=== PATIENT | female | born 1965 | race Caucasian/White ===

== ENCOUNTER → 2017-05-10 | Outpatient (CLI) | payer SELFPAY ==
--- NOTE | 2017-05-10 11:36 | US ---
EXAMINATION TYPE: US gallbladder DATE OF EXAM: 05/10/2017 COMPARISON: NONE CLINICAL HISTORY: R10.9 ABD Pain. EXAM MEASUREMENTS: Liver Length: 15.6 cm Gallbladder Wall: 0.2 cm CBD: 0.4 cm Right Kidney: 11.0 x 5.1 x 4.7 cm Pancreas: wnl Liver: difficult to penetrate and the echotexture is coarse Gallbladder: wnl Evidence for sonographic Rubio's sign: no CBD: wnl Right Kidney: wnl and cortical medullary differentiation is maintained There is no ascites. IMPRESSION: Correlate for hepatocellular disease, hepatic steatosis.
== END | disposition home or self-care (01) ==
LOC: RADUSWWP 06:55
PROVIDERS: ATTEND Family Medicine
DX: R10.9 Unspecified abdominal pain (principal)
CPT/HCPCS: 76705

== ENCOUNTER → 2017-06-08 | Outpatient (CLI) | payer OTHER ==
--- NOTE | 2017-06-08 09:12 | NM ---
EXAMINATION TYPE: NM hepatobiliary w EF DATE OF EXAM: 06/08/2017 COMPARISON: Gallbladder ultrasound dated 05/10/2017 HISTORY: Abdominal pain TECHNIQUE: After the intravenous administration of 5.17 mCi Tc 99m Mebrofenin hepatobiliary scintigra phy is performed. Immediate images post injection. FINDINGS: There is satisfactory initial accumulation of tracer by the liver. The gallbladder is visualized wit hin 10 minutes. The small bowel activity is noted after injection fraction was calculated. At one h our 8 ounces of oral ensure plus is given to mimic CCK and gallbladder ejection fraction is calculate d at 77 %, slightly elevated with normal range of 35-75%. Therefore there is no scintigraphic eviden ce of cystic or common bile duct obstruction to suggest acute cholecystitis. IMPRESSION: 1. Slight elevation of the gallbladder ejection fraction indicating mild biliary hyperkinesia. 2. No scintigraphic evidence of acute or chronic cholecystitis.
== END | disposition home or self-care (01) ==
LOC: RADNMMAIN 06:51
PROVIDERS: ATTEND Family Medicine
DX: R93.2 Abnormal findings on diagnostic imaging of liver and biliary tract (principal)
CPT/HCPCS: 78226; A9537

== ENCOUNTER 2020-10-08 07:52 | Day surgery (SDC) | payer BC, OTHER ==
[2020-10-07 09:26] VITALS: BMI 30.4
[2020-10-08 08:24] VITALS: RESP 16; TEMP 97.2
[2020-10-08] MEDS: LACTATED RINGERS 1,000 ML IV SCH ×2 (08:32→09:06)
[2020-10-08] MEDS ORDERED: PROPOFOL 10 MG/ML 20 ML VIAL IV ONE (09:07)
[2020-10-08] MEDS ORDERED: LIDOCAINE 1% INJ 10MG/ML (20 ML MDV) ONE (09:07)
--- NOTE | 2020-10-08 09:28 | P.PCN ---
Date of Procedure: 10/08/20 Procedure(s) Performed: BRIEF HISTORY: Patient is a 55-year-old pleasant white female scheduled for an elective colonoscopy as a part of evaluation of prior history of colon polyps. PROCEDURE PERFORMED: Colonoscopy with snare polypectomy. PREOPERATIVE DIAGNOSIS: History of colon polyps. IV sedation per Anesthesia. PROCEDURE: After informed consent was obtained, the patient, was brought into the endoscopy unit. IV sedation was administered by Anesthesia under continuous monitoring. Digital rectal examination was normal. Initially the Olympus CF-160 flexible video colonoscope was then inserted in the rectum, gradually advanced into the cecum without any difficulty. Careful examination was performed as the scope was gradually being withdrawn. Ileocecal valve and the appendiceal orifice were visualized and appeared normal. Prep was excellent. Mucosa of the cecum, ascending colon, transverse colon, was normal. In the descending colon there was a 5 mm sessile polyp removed by snare polypectomy. Rest of the descending colon, sigmoid colon, and rectum appeared normal. Retroflexion was performed in the rectum and grade 2 internal hemorrhoids were seen. The patient tolerated the procedure well. IMPRESSION: 5 mm descending colon polyp status post polypectomy. Grade 2 internal hemorrhoids RECOMMENDATIONS: Findings of this examination were discussed with the patient as well as her family. She was advised to follow with the biopsy results. If the biopsy reveals adenoma, she can have a repeat coloscopy in 5 years.
[2020-10-08 09:58] VITALS: BP 124/84; PULSE 60
== END 2020-10-08 10:12 | disposition home or self-care (01) ==
LOC: ORWHC2ENDO 07:52
PROVIDERS: ATTEND Internal Medicine Gastroenterology
DX: D12.4 Benign neoplasm of descending colon (principal); K64.1 Second degree hemorrhoids; Z86.010 Personal history of colon polyps; E78.5 Hyperlipidemia, unspecified; Z79.899 Other long term (current) drug therapy
CPT/HCPCS: 45385; 81025; 88305; J2001; J2704

== ENCOUNTER → 2022-05-13 | Outpatient (CLI) | payer BC ==
--- NOTE | 2022-05-14 08:22 | MM ---
Reason for Exam: Screening (asymptomatic). Last mammogram was performed 6 year(s) and 4 month(s) ago. Patient History: Menarche at age 15. First Full-Term at age 22. Postmenopausal. Patient used Hormonal Contraceptives for 2 years. Risk Values: Annamarie 5 year model risk: 1.1%. NCI Lifetime model risk: 7.4%. Prior Study Comparison: 12/20/2013 Bilateral Diagnostic Mammogram, [facility]. 06/12/2014 Left Diagnostic Mammogram, [facility]. 01/06/2016 Bilateral Screening Mammogram, [facility]. Tissue Density: There are scattered fibroglandular densities. Findings: Analyzed By CAD. There is new 9 to 10 mm spiculated irregular mass in the left breast middle depth central aspect approximately 6 cm distance from nipple warrants follow-up. Stable 4 mm round mass in the anterior right breast slightly lower inner aspect. Overall Assessment: Incomplete: need additional imaging evaluation, BI-RAD 0 Management: Diagnostic Breast Ultrasound of the left breast. Targeted ultrasound. If Ultrasound negative, diagnostic mammogram follow-up would be advised. Electronically signed and approved by: Michael Han M.D.
--- NOTE | 2022-05-14 10:45 | BD ---
EXAMINATION TYPE: Axial Bone Density DATE OF EXAM: 05/13/2022 CLINICAL HISTORY: 57 years old Female. ICD-10 CODE: Z780, N951 POST KYRA Height: 65.25 Weight: 209.5 FRAX RISK QUESTIONS: Alcohol (3 or more units per day): no Family History (Parent hip fracture): no Glucocorticoids (More than 3mos): no History of Fracture in Adulthood: no Secondary Osteoporosis: 1. Type 1 Diabetes: no 2. Hyperthyroidism: no 3. Menopause before 45: no 4. Malnutrition: no 5. Chronic liver disease: no Rheumatoid Arthritis: no Current Tobacco Use: no RISK FACTORS HISTORY OF: Hip Fracture (Right/Left): no Spine Fracture: no History of Wrist Fracture: no Surgery to Spine/Hip(right/left)/Wrist (right/left): no Family History of Osteoporosis: no Active: no Diet low in dairy products/other sources of calcium: yes Postmenopausal woman: yes Take estrogen and/or progesterone medications: no Lost more than 2 inches in height since high school: yes Frequent falls: no Poor Health: no Hyperparathyroidism: no Adrenal Insufficiency: no MEDICATIONS: Prednisone or other steroids: no Thyroid Medications: no Osteoporosis Medications: no Additional Medications: vit d, cholesterol meds, vit b12 Additional History: EXAM MEASUREMENTS: Bone mineral densitometry was performed using the [employer] System. Bone mineral density as measured about the Lumbar spine is: ----- L1-L4(G/cm2): 1.053 T Score Values are as follows: ----- L1: -1.1 ----- L2: -1.0 ----- L3: -0.2 ----- L4: -2.0 ----- L1-L4: -1.1 Z Score Values are as follows: ----- L1: -1.2 ----- L2: -1.2 ----- L3: -0.4 ----- L4: -2.2 ----- L1-L4: -1.2 Baseline Study Bone mineral density about the R hip (g/cm2): 0.996 Bone mineral density about the L hip (g/cm2): 0.976 T Score values are as follows: -----R Neck: -0.7 -----L Neck: -1.2 -----R Total: -0.1 -----L Total: -0.2 Z Score values are as follows: -----R Neck: -0.3 -----L Neck: -0.9 -----R Total: -0.2 -----L Total: -0.3 Baseline Study FRAX%s: The graph provided illustrates a 5.8%% chance for a major osteoporotic fx and a 0.3%% chance for the hips probability for fx in 10 years time. IMPRESSION: Normal (Values between +1 and -1 indicate normal bone mass). Consider repeating this study in 5 year s or sooner if there is some new clinical indication. NOTE: T-SCORE=SD OF THE YOUNG ADULT MEAN.
== END | disposition home or self-care (01) ==
LOC: RADMAMWWP 16:02
PROVIDERS: ATTEND Family Medicine
DX: Z12.31 Encounter for screening mammogram for malignant neoplasm of breast (principal); M85.89 Other specified disorders of bone density and structure, multiple sites; Z78.0 Asymptomatic menopausal state
CPT/HCPCS: 77067; 77080

== ENCOUNTER → 2022-05-18 | Outpatient (CLI) | payer BC ==
--- NOTE | 2022-05-18 08:17 | USB ---
Reason for Exam: Additional evaluation requested from abnormal screening. Patient History: Menarche at age 15. First Full-Term at age 22. Postmenopausal. Patient used Hormonal Contraceptives for 2 years. Risk Values: Annamarie 5 year model risk: 1.1%. NCI Lifetime model risk: 7.4%. Technique: Method: Targeted. Prior Study Comparison: 06/12/2014 Left Diagnostic Mammogram, [facility]. 01/06/2016 Bilateral Screening Mammogram, [facility]. 05/13/2022 Bilateral MG screening mammo w CAD, [facility]. Findings: The upper outer quadrant of the left breast, the axilla of the left breast and the retroareolar of the left breast were scanned. Hypoechoic mass with posterior acoustic shadowing at the left 11:30 to 12:00 position measuring approximately 8 x 5 mm. Tissue diagnosis is recommended. No axillary adenopathy is appreciated.. Overall Assessment: Highly suggestive of malignancy, BI-RAD 5 Management: Ultrasound Core Biopsy of the left breast. A clinical breast exam by your physician is recommended on an annual basis and results should be correlated with mammographic findings. This exam should not preclude additional follow-up of suspicious palpable abnormalities. Results were given to the patient verbally at the time of exam. Electronically signed and approved by: Stuart Haro M.D. Radiologis
== END | disposition home or self-care (01) ==
LOC: RADUSWWP 07:37
PROVIDERS: ATTEND Family Medicine
DX: R92.8 Other abnormal and inconclusive findings on diagnostic imaging of breast (principal); N63.22 Unspecified lump in the left breast, upper inner quadrant; Z78.0 Asymptomatic menopausal state

== ENCOUNTER → 2022-06-02 | Day surgery (SDC) | payer BC ==
--- NOTE | 2022-06-09 10:39 | MM ---
Reason for Exam: Post Procedure Mammogram. Last screening mammogram was performed less than 1 month ago. Patient History: Menarche at age 15. First Full-Term at age 22. Postmenopausal. Patient used Hormonal Contraceptives for 2 years. Risk Values: Annamarie 5 year model risk: 1.1%. NCI Lifetime model risk: 7.4%. Prior Study Comparison: 06/12/2014 Left Diagnostic Mammogram, [facility]. 01/06/2016 Bilateral Screening Mammogram, [facility]. 05/13/2022 Bilateral MG screening mammo w CAD, [facility]. Tissue Density: Left: There are scattered fibroglandular densities. Pathology Description: Location: 12 o'clock. Marker Left Behind. Cores: 6 Skin Nicks: 1 Gauge: 13 The procedure of ultrasound guided core biopsy was explained to the patient. Benefits, alternatives, and risks were discussed. An informed consent was then obtained. A timeout was performed. The patient was placed in supine positioning for imaging and for the procedure. The overlying skin was prepped and draped in usual sterile fashion. Lidocaine was used as anesthetic into the skin and subcutaneous tissue up to area of concern in the left breast. A small skin leeanne was made with surgical scalpel. Under ultrasound guidance, a 12-gauge vacuum assisted biopsy gun device was used to obtain 6 core samples. A biopsy clip was left in lesion. Hydromark core coil marker was placed. The patient tolerated the procedure well without any immediate complication. The patient was kept in the radiology department for short stay after the procedure and then discharged home in stable condition. Postprocedure mammogram: The patient was transferred to mammography for physician ordered post procedure mammogram for clip placement verification. Impression: Successful ultrasound guided core biopsy of area of concern in the left breast, full pathology results to follow. Recommendations: 1. Recommendations are pending pathology results. Pathology Results: Result: Malignant, Invasive ductal carcinoma. LEFT BREAST, TWELVE O'CLOCK, ULTRASOUND GUIDED NEEDLE CORE BIOPSY: Invasive moderately differentiated ductal carcinoma (grade 2). See Surgical Pathology Cancer Case Summary. Overall Assessment: Malignant Assessment: MG diagnostic mammo LT wo CAD. - Left: Known biopsy proven malignancy, BI-RAD 6. Management: Surgical Consultation of the left breast. Electronically signed and approved by: Yoan Connors D.O. Radiologis
== END ==
LOC: RADUSWWP 10:16
PROVIDERS: ATTEND Family Medicine
DX: D05.12 Intraductal carcinoma in situ of left breast (principal)
CPT/HCPCS: 88305; 88342; 88341; 77065; 19083; A4648

== ENCOUNTER → 2022-07-01 | Outpatient (CLI) | payer BC ==
--- NOTE | 2022-07-01 07:45 | XR ---
EXAMINATION TYPE: XR chest 2V DATE OF EXAM: 07/01/2022 COMPARISON: None INDICATION: Presurgical evaluation TECHNIQUE: Frontal and lateral views of the chest are obtained. FINDINGS: The heart size is normal. The pulmonary vasculature is normal. The lungs are clear. IMPRESSION: 1. No acute pulmonary process.
== END | disposition home or self-care (01) ==
LOC: RADXRMAIN 07:02
PROVIDERS: ATTEND Family Medicine
DX: Z01.818 Encounter for other preprocedural examination (principal)
CPT/HCPCS: 71046

== ENCOUNTER → 2022-07-15 | Outpatient (CLI) | payer BC ==
[2022-07-15 13:16] VITALS: BP 122/86; PULSE 85; RESP 16; TEMP 98.3
--- NOTE | 2022-07-15 13:30 | P.PN ---
Subjective Progress Note Date: 07/15/22 Principal diagnosis: left breast stage IA invasive ductal cancer : History of Present Illness H&P Date: 06/18/22 Chief Complaint: Invasive ductal carcinoma left breast Cristina is a 57-year-old white female seen in consultation for Dr. El regarding a left breast invasive ductal carcinoma. [place] [id number]. This revealed a new 9-10 mm spiculated irregular mass in the left breast approximately 6 cm from the nipple. An ultrasound was then recommended. Nothing of concern was seen in the right breast and ultrasound revealed an 8 x 5 mm lesion at the 11:30 to 12 o'clock position[place] [id number]. Pathology results revealed an invasive ductal carcinoma ER/CO positive HER-2/mina negative grade 2. The patient does not feel any new lumps masses or nodules of concern. This was a routine screening mammogram. Her last mammogram prior to this was 4 years ago. She is not complaining of any nipple discharge or skin changes. She has not had any recent trauma or infection in the breast. The patients case was presented at tumor board on 06-22-22. The consensus was for a lumpectomy and sentinel node biopsy. She will have radiation therapy to follow. She will have hormone therapy following the radiation therapy. I have called the patient and discussed this with her. She is in agreement. She will have an Oncotype done on the lumpectomy specimen. Surgery is scheduled for July 29. Caffeine: 5-8 cups/day in the past nicotine: stopped 13 years ago used to smoke 1 PPD for 20 years chocolate: weekly BCP: stopped 30 years ago, used for about 5 years Family History: cousin maternal: breast cancer 2 maternal cousins: uterine cancer maternal cousin: brain cancer Hormonal History: menarche: 15 A1, breast fed: no, age at first : 22 menopasue: 54 hormones: none Surgical history: laporatomy for a growth on ovary at 34, no cancer vein stripping colonoscopies Medical History: High cholesterol Social History: nicotine: as above alcohol: occasional drugs: Smokes marijuana daily, for 40 years, to keep calm - Constitutional Constitutional: Reports sweats - EENT Eyes: denies blurred vision, denies pain Ears: deny: decreased hearing, tinnitus Ears, nose, mouth and throat: Reports headache, Denies sore throat - Breasts Breasts: bilateral: as per HPI - Cardiovascular Cardiovascular: Denies chest pain, Denies shortness of breath - Respiratory Respiratory: Denies cough, Denies 7 - Gastrointestinal Gastrointestinal: Denies abdominal pain, Denies diarrhea, Denies nausea, Denies vomiting - Genitourinary (Female) Genitourinary: Denies dysuria, Denies hematuria - Menstruation Menstruation: Reports postmenopausal - Musculoskeletal Musculoskeletal: Denies myalgias - Integumentary Integumentary: Denies pruritus, Denies rash - Neurological Neurological: Denies numbness, Denies weakness - Psychiatric Psychiatric: Reports anxiety - Endocrine Endocrine: Reports fatigue, Denies weight change - Hematologic/Lymphatic Comment: none - Allergic/Immunologic Allergic/Immunologic: Reports seasonal allergies Past Medical History Past Medical History: GERD/Reflux, Hyperlipidemia, Thyroid Disorder Additional Past Medical History / Comment(s): dx yrs ago with IBS no longer an issue since eliminting gluten. FATTY LIVER, gestational diabetes, hx hypothyroidism-no current rx History of Any Multi-Drug Resistant Organisms: None Reported Additional Past Surgical History / Comment(s): LAPAROTOMY AND LAPAROSCOPY, RT VARICOSE VEIN STRIPPING, colonocopy Past Anesthesia/Blood Transfusion Reactions: No Reported Reaction Past Psychological History: No Psychological Hx Reported Smoking Status: Former smoker Past Alcohol Use History: Rare Additional Past Alcohol Use History / Comment(s): QUIT SMOKING 2007, was 1 PPD Past Drug Use History: Marijuana Additional Drug Use History / Comment(s): CBD oil. - Past Family History Mother Family Medical History: No Reported History Medications and Allergies Home Medications Medication Instructions Recorded Confirmed Type Cholesterol Pill(Name Unknown) 1 tab PO HS 10/07/20 06/18/22 History Loratadine-Pseudoeph 5-120 mg 1 tab PO QAM 10/07/20 06/18/22 History [Claritin-D 12 Hour] Cyclobenzaprine [Flexeril] 5 mg PO TID 05/19/22 06/18/22 History Allergies Allergy/AdvReac Type Severity Reaction Status Date / Time propoxyphene Allergy "goes into Verified 06/18/22 10:36 [From Darvocet-N] a rage" Objective - Vital Signs Vital signs: Vital Signs Temp 98.3 F 07/15/22 13:13 Pulse 85 07/15/22 13:13 Resp 16 07/15/22 13:13 BP 122/86 07/15/22 13:13 Pulse Ox 98 07/15/22 13:13 FiO2 Intake & Output 07/14/22 07/15/22 07/15/22 18:59 06:59 18:59 Weight 95.254 kg - Constitutional General appearance: Present: cooperative - EENT Eyes: Present: EOMI ENT: Present: hearing grossly normal - Neck Neck: Present: normal ROM - Respiratory Respiratory: bilateral: CTA - Cardiovascular Rhythm: regular Heart sounds: normal: S1, S2 - Gastrointestinal General gastrointestinal: Present: soft - Integumentary Integumentary: Present: normal turgor - Musculoskeletal Musculoskeletal: Present: gait normal - Psychiatric Psychiatric: Present: A&O x's 3, appropriate affect, intact judgment & insight - Additional findings Additional findings: Breast Exam: BRA: 38D Inspection: Bilateral grade 2/3 ptosis Palpation: Right breast: Multi-positional exam fibrocystic changes no dominant masses or nodules of concern Right axilla: No adenopathy of concern Left breast: Stereotactic core biopsy site identified clean and dry, no dominant masses or nodules of concern. Tumor cannot be palpated Left axilla: No adenopathy of concern Assessment and Plan Assessment: Impression: Left breast invasive ductal carcinoma stage IA Hyper cholesterol Plan: Presentation of case at tumor board done on 06-22-22 left breast needle localization lumpectomy, possible onco-plastic tissue transfer, sentinel node injection on the left, left sentinel node biopsy, possible left axillary node dissection, the profundus to be done via a mastopexy incision We have discussed treatment options which in include surgery, radiation oncology, and medical oncology. Surgical treatment of the breast could be mastectomy plus or minus reconstruction or lumpectomy area the patient wishes to have lumpectomy performed. We've also discussed surgical treatment of the axilla sentinel lymph node biopsy possible axillary node dissection. We have discussed risks and benefits of the procedure which include but are not limited to bleeding, infection, reaction to the anesthetic. Additionally the possibility of injury to the thoracodorsal and long thoracic nerves, lymphedema, and decreased sensation to the inner arm were discussed. The patient and her understand and wish to proceed. CC: Dr. El
== END ==
LOC: WWCWWP 12:27
PROVIDERS: ATTEND Surgery
DX: C50.212 Malignant neoplasm of upper-inner quadrant of left female breast (principal); E78.00 Pure hypercholesterolemia, unspecified; K21.9 Gastro-esophageal reflux disease without esophagitis; E78.5 Hyperlipidemia, unspecified; E03.9 Hypothyroidism, unspecified; Z80.3 Family history of malignant neoplasm of breast; Z80.59 Family history of malignant neoplasm of other urinary tract organ; Z80.8 Family history of malignant neoplasm of other organs or systems; Z87.891 Personal history of nicotine dependence; Z88.8 Allergy status to other drugs, medicaments and biological substances

== ENCOUNTER 2022-07-27 10:17 | Day surgery (SDC) | payer BC ==
[2022-07-22 10:49] VITALS: BMI 33.3
[~2022-07-27 10:17] MED LIST: DEXAMETHASONE SOD PHOSPHATE 4 MG/ML 1 ML VIAL IV ONE; HEPARIN SODIUM,PORCINE/PF 5,000 UNIT/0.5 ML SYRINGE SQ PRN; HYDROmorphone 0.5 MG/0.5 ML SYRINGE IVP PRN; LACTATED RINGERS 1,000 ML IV SCH; LIDOCAINE 1% (10MG/ML) FOR IV START INTRADERMA PRN; METOCLOPRAMIDE 5 MG/ML 2 ML VIAL IVP PRN; ONDANSETRON 4 MG/2 ML VIAL IVP ONE; Pre Op ABX Message 1 EACH MISC MISCELLANE ONE; droPERidol 5 MG/2 ML VIAL IVP ONE
[2022-07-27] MEDS ORDERED: ALPRAZolam 0.5 MG TAB ONE (11:15)
[2022-07-27] MEDS ORDERED: LIDOCAINE 1% (10MG/ML) FOR IV START SQ ONE (11:42)
--- NOTE | 2022-07-27 12:26 | P.NAPBC ---
NAPBC Queries - NAPBC Queries Was patient's case review presented at [facility] tumor board? If no, comment.: Yes Was patient's pathology reviewed at [facility]? If no, comment.: Yes Was breast conservation surgery offered? If no, comment.: Yes Was sentinel node biopsy offered? If no, comment.: Yes Was diagnosis confirmed by percutaneous core biopsy? If no, comment.: Yes Is patient mastectomy patient?: No Was a preop referral to reconstructive surgeon offered?: No Clinical Stage: stage 1
[2022-07-27] MEDS ORDERED: ceFAZolin 1,000 MG VIAL ONE (12:42)
[2022-07-27] MEDS ORDERED: SODIUM CHLORIDE 0.9% 100 ML BAG ONE (12:42)
[2022-07-27] MEDS ORDERED: SUCCINYLCHOLINE CHLORIDE 200 MG/10 ML VIAL IV ONE (12:42)
[2022-07-27] MEDS ORDERED: PROPOFOL 10 MG/ML 20 ML VIAL IV ONE (12:42)
[2022-07-27] MEDS ORDERED: fentaNYL (PF) 50 MCG/ML 2 ML AMP ONE (12:42)
[2022-07-27] MEDS ORDERED: LIDOCAINE 2% INJ 20 MG/ML (2 ML VIAL) ONE (12:42)
[2022-07-27] MEDS ORDERED: SODIUM CHLORIDE 0.9% 50 ML with ceFAZolin 2,000 MG IV ONE ×2 (12:46)
--- NOTE | 2022-07-27 12:47 | NM ---
EXAMINATION TYPE: NM sentinel node injection DATE OF EXAM: 07/27/2022 COMPARISON: No direct comparison CLINICAL INDICATION: Female, 57 years old with history of C50.212 BREAST CANCER; TECHNIQUE AND FINDINGS: The procedure of sentinel lymph node injection was explained to the patient. The benefits, alternatives, and risks were discussed. An informed consent was then obtained. Overlying skin is cleaned with sterile alcohol. Following this, 480 uCi Tc99m Tilmanocept was inject ed in the upper outer aspect of the left nipple intradermally. The patient tolerated the procedure well without any immediate complication. The patient was kept in the radiology department for short stay after the procedure and then taken to surgery for surgical p rocedure what is presumed intraoperative gamma probe will be used for sentinel lymph node detection. IMPRESSION: Left breast radiotracer injection for sentinel node localization as above.
--- NOTE | 2022-07-27 15:11 | P.OP ---
Date of Procedure: 07/27/22 Preoperative Diagnosis: Invasive ductal carcinoma left breast Postoperative Diagnosis: Same Procedure(s) Performed: Left breast sentinel node injection with methylene blue mapping, left breast sentinel node biopsy, left breast needle localization lumpectomy, mastopexy, onco-plastic tissue transfer 54 cm Anesthesia: JIMA Surgeon: Lakeisha Hamilton Estimated Blood Loss (ml): 10 IV fluids (ml): 700 Pathology: other (Tissue left axilla and left breast) Condition: stable Disposition: same day Indications for Procedure: Left breast invasive ductal carcinoma Operative Findings: Fatty breast tissue Description of Procedure: The patient is a 57-year-old white female with a left breast invasive ductal carcinoma. She was seen first in the radiology department where needle localization of the area of concern was performed as well as injection in the periareolar area of radial tracer. The patient was brought to the operative suite and following induction of anesthesia the neoprobe was used to interrogate the axilla. Radioactivity was minimal in the axilla. Therefore 10 mL of half-strength methylene blue was injected in the periareolar region. The breast was massaged for 5 minutes. The left breast was then prepped and draped as well as the left axilla in sterile fashion. The area of the axilla was chosen first. An incision was made in the axilla and once the axillary area was entered increased radioactivity could be identified. There was a lymph node and this was resected. The 10 second count on the blue lymph node was 10,559. The background axillary count was 22. After we were assured that hemostasis was attained the wound was well irrigated. The deep tissues were closed using 3-0 Vicryl suture. This followed by closure of the skin using a 4-0 Monocryl. No other adenopathy of concern had been identified in the axilla. The area of the breast was then approached. In the preoperative area had been marked for a mastopexy incision. The nipple areolar complex was being elevated 3 cm. The skin was marked for a crescent mastopexy. The tissue was de- epithelialized. Dissection was then performed down to the shaft of the needle. This was grasped using an Allis clamp and the surrounding tissue was excised. The cavity was 6 cm x 4 cm. The specimen was painted for orientation. Radiograph of the specimen revealed the lesion but not the clip. We therefore requested that pathology look at the specimen to assure that the lesion of concern was included in the specimen. This was done by Dr. Chavez from pathology which he assured us that the lesion had been removed. The wound was well irrigated. Titanium clips were placed. A medial pillar was developed which was 3 cm x 5 cm. A lateral pillar was developed which was also 3 cm x 5 cm. The pillars were brought together to close the defect. These were secured using 3-0 Vicryl suture. Posterior dissection was onto the pectoralis muscle. The mastopexy incision was closed using 3-0 Vicryl suture followed by 4-0 nylon subcuticular suture. A 4-0 nylon skin suture was then placed. The patient tolerated the procedure in stable condition. All instrument and sponge counts were correct at the end of the case.
--- NOTE | 2022-07-27 15:13 | P.DS ---
Providers Attending physician: Lakeisha Hamilton Primary care physician: Erinn El Plan - Discharge Summary Discharge Rx Participant: No New Discharge Prescriptions: New HYDROcodone/APAP 5-325MG [Joy 5] 1 - 2 each PO Q6HR PRN #20 tab PRN Reason: Pain Discharge Medication List HYDROcodone/APAP 5-325MG [Joy 5] 1 - 2 each PO Q6HR PRN #20 tab 07/27/22 [Rx] Follow up Appointment(s)/Referral(s): Lakeisha Hamilton MD [STAFF PHYSICIAN] - 08/06/22 10:20 am Activity/Diet/Wound Care/Special Instructions: Do not drive for 24 hours from discharge or if taking narcotic pain medicine Wear bra at all times May shower after 48 hours Discharge Disposition: HOME SELF-CARE
[2022-07-27 15:20] VITALS: TEMP 97.2
[2022-07-27 15:36] VITALS: RESP 16
[2022-07-27] MEDS ORDERED: HYDROcodone/APAP 5-325MG 1 EACH TAB ONE (16:46)
[2022-07-27 16:59] VITALS: PULSE 67
[2022-07-27 17:10] VITALS: BP 126/83
--- NOTE | 2022-08-02 12:03 | MM ---
Reason for Exam: Post Procedure Mammogram. Last screening mammogram was performed 3 month(s) ago. Patient History: Menarche at age 15. First Full-Term at age 22. Postmenopausal. Breast cancer, left, age 57. Patient used Hormonal Contraceptives for 2 years. 06/02/2022, Malignant US biopsy breast VAD LT on the left side. Prior Study Comparison: 06/12/2014 Left Diagnostic Mammogram, [facility]. 01/06/2016 Bilateral Screening Mammogram, [facility]. 05/13/2022 Bilateral MG screening mammo w CAD, [facility]. 06/02/2022 Left MG diagnostic mammo LT wo CAD., [facility]. Tissue Density: Left: There are scattered fibroglandular densities. Pathology Description: Location: 12 o'clock, upper outer quadrant, middle. Needle Type: 7 cm Kopan The procedure of needle localization with wire placement and than surgical excision was explained to the patient. Benefits, alternatives, and risks were discussed. An informed consent was then obtained. The shortest pathway for procedure was chosen. Shortest pathway was lateral approach. The overlying skin was prepped and draped in usual sterile fashion. Lidocaine was used as anesthetic into the skin and subcutaneous tissue up to the level of area of concern. A 7 cm needle was used. It was placed via constant ultrasound guidance. The needle was demonstrated traversing the lesion. The wire was placed and the needle was withdrawn. The wire was fixed to patient's skin. Images were discussed in person with the surgeon. The patient tolerated the procedure well without any immediate complication. The patient was kept in the radiology department for short stay after the procedure and then taken to surgery for surgical excision. The breast lesion corresponding to mammogram and wire are identified in specimen mammogram. The biopsy clip was not identified. The patient was kept in hospital for short stay after the procedure and then discharged home in stable condition. Impression: Successful, uncomplicated ultrasound-guided needle localization with wire placement and surgical excision of left breast mass, full pathology results to follow. Pathology Results: Result: Malignant, Invasive ductal carcinoma. A. SENTINEL LYMPH NODE #1, DISSECTION: One sentinel lymph node, negative for metastatic carcinoma (0/1). CK7 and RUBEN stains, each performed with appropriate controls on block A1, each negative for metastatic carcinoma. B. BREAST TISSUE, NEW SUPERIOR MARGIN, EXCISION: Benign breast tissue and new superior margin, negative for diagnostic in situ or invasive carcinoma. C. LEFT BREAST, LUMPECTOMY: Invasive ductal carcinoma, grade 2, with intermediate grade ductal carcinoma in situ (DCIS) having comedonecrosis and microcalcification. See surgical pathology cancer case summary and comment. All margins negative for in situ or invasive carcinoma. Closest margin to invasive carcinoma: 2 mm from anterior margin. Closest margin to DCIS: 3 mm from anterior margin. Overall Assessment: Malignant Assessment: MG diagnostic mammo LT wo CAD. - Left: Known biopsy proven malignancy, BI-RAD 6. Management: Diagnostic Mammogram of the left breast in 6 months. Electronically signed and approved by: Perez Hogan D.O.
== END 2022-07-27 17:29 | disposition home or self-care (01) ==
LOC: OR 10:17
PROVIDERS: ATTEND Surgery
DX: D05.12 Intraductal carcinoma in situ of left breast (principal); E78.5 Hyperlipidemia, unspecified; K21.9 Gastro-esophageal reflux disease without esophagitis; F10.20 Alcohol dependence, uncomplicated; E03.9 Hypothyroidism, unspecified; F12.90 Cannabis use, unspecified, uncomplicated; K76.0 Fatty (change of) liver, not elsewhere classified; Z87.891 Personal history of nicotine dependence; Z80.3 Family history of malignant neoplasm of breast; Z79.899 Other long term (current) drug therapy
CPT/HCPCS: 19301; 38525; 14301; 88342; 88307; 88341; 77065; 76098; 19285; 38792; C1819; A9520; J0330; J1100; J2405; J0690; J3010; J2704; J1170; J1644; J2001

== ENCOUNTER → 2022-08-06 | Outpatient (CLI) | payer BC ==
[2022-08-06 10:28] VITALS: BP 91/55; PULSE 79; RESP 16; TEMP 98.6
--- NOTE | 2022-08-06 10:29 | P.PN ---
Progress Note - Text Progress Note Date: 08/06/22 Cristina is a 57-year-old white female status post left [place] [id number]. Pathology revealed an 8 mm invasive ductal carcinoma, and a 5 mm DCIS. [place] node was negative for cancer. All margins were negative. She tolerated the procedure without difficulty. Examination: Lungs: Clear Heart: Regular rate and rhythm Incision left breast: Some tattooing related to blue dye injection at the lateral aspect of the incision otherwise healing well Axillary incision clean and dry Impression: Patient doing well Plan: Follow-up medical oncology Follow-up radiation oncology Follow-up here in 4 months CC:Dr. El
== END ==
LOC: WWCWWP 10:10
PROVIDERS: ATTEND Surgery
DX: D05.12 Intraductal carcinoma in situ of left breast (principal); Z91.048 Other nonmedicinal substance allergy status; Z88.5 Allergy status to narcotic agent; Z87.891 Personal history of nicotine dependence

== ENCOUNTER → 2022-09-02 | Outpatient (CLI) | payer BC ==
--- NOTE | 2022-09-02 12:06 | P.PN ---
Progress Note - Text Progress Note Date: 09/02/22 Cristina is a 57-year-old white female status post left [place] [id number]. Pathology revealed an 8 mm invasive ductal carcinoma, and a 5 mm DCIS. [place] node was negative for cancer. All margins were negative. She tolerated the procedure without difficulty. Examination: Lungs: Clear Heart: Regular rate and rhythm Incision left breast: Some tattooing related to blue dye injection at the lateral aspect of the incision otherwise healing well Axillary incision clean and dry Impression: Patient doing well suture was at incision site Plan: Follow-up medical oncology Follow-up radiation oncology Follow-up here in 4 months removal of sutures follow up next week CC:Dr. El
[2022-09-02 12:32] VITALS: BP 150/88; PULSE 91; RESP 17; TEMP 98.3
== END ==
LOC: WWCWWP 11:49
PROVIDERS: ATTEND Surgery
DX: R92.8 Other abnormal and inconclusive findings on diagnostic imaging of breast (principal); Z04.9 Encounter for examination and observation for unspecified reason; Z90.12 Acquired absence of left breast and nipple; D05.12 Intraductal carcinoma in situ of left breast; Z91.048 Other nonmedicinal substance allergy status; Z88.8 Allergy status to other drugs, medicaments and biological substances; Z87.891 Personal history of nicotine dependence

== ENCOUNTER → 2022-09-08 | Outpatient (CLI) | payer BC ==
[2022-09-08 07:54] VITALS: BP 142/83; PULSE 88; RESP 16; TEMP 97.9
--- NOTE | 2022-09-08 08:15 | P.PN ---
Progress Note - Text Progress Note Date: 09/08/22 Cristina is a 57-year-old white female status post left [place] [id number]. Pathology revealed an 8 mm invasive ductal carcinoma, and a 5 mm DCIS. [place] node was negative for cancer. All margins were negative. She tolerated the procedure without difficulty. She was seen last week for suture removal. Note Dr. Anthony [id number] reviewed Oncotype 20 will not require chemotherapy, will be meeting with Dr. Johnson of radiation oncology following radiation she will be initiated on adjuvant endocrine therapy anastrozole 1 mg daily for at least 5 years Examination: Lungs: Clear Heart: Regular rate and rhythm Incision left breast: 2 small sites of suture extruding from the incision, the tattooing has resolved Axillary incision clean and dry Impression: Patient doing well suture removed from 2 sites at the periareolar incision Plan: Follow-up medical oncology Follow-up radiation oncology Follow-up here in 4 months CC:Dr. El
== END ==
LOC: WWCWWP 07:33
PROVIDERS: ATTEND Surgery
DX: Z48.02 Encounter for removal of sutures (principal); D05.90 Unspecified type of carcinoma in situ of unspecified breast; Z91.048 Other nonmedicinal substance allergy status; Z88.8 Allergy status to other drugs, medicaments and biological substances; Z87.891 Personal history of nicotine dependence

== ENCOUNTER → 2022-12-08 | Outpatient (CLI) | payer BC ==
--- NOTE | 2022-12-08 16:19 | P.PN ---
Subjective Progress Note Date: 12/08/22 Invasive ductal carcinoma left breast Cristina is a 57-year-old white female seen in consultation for Dr. El regarding a left breast invasive ductal carcinoma. She underwent a bilateral screening mammogram on . This revealed a new 9-10 mm spiculated irregular mass in the left breast approximately 6 cm from the nipple. An ultrasound was then recommended. Nothing of concern was seen in the right breast and ultrasound revealed an 8 x 5 mm lesion at the 11:30 to 12 o'clock position. Core biopsy was performed on . Pathology results revealed an invasive ductal carcinoma ER/KS positive HER-2/mina negative grade 2. The patient does not feel any new lumps masses or nodules of concern. This was a routine screening mammogram. Her last mammogram prior to this was 4 years ago. She is not complaining of any nipple discharge or skin changes. She has not had any recent trauma or infection in the breast. The patients case was presented at tumor board on 06-22-22. The consensus was for a lumpectomy and sentinel node biopsy. She will have radiation therapy to follow. She will have hormone therapy following the radiation therapy. I have called the patient and discussed this with her. She is in agreement. She will have an Oncotype done on the lumpectomy specimen. Surgery is scheduled for July 29. 12-08-22 Is not complaining of any new lumps masses or nodules of concern in either breast, does complain of a suture that is protruding from the periareolar area in the medial aspect of the left breast 07-27-22 lumpectomy and SNB; Grade 2 invasive ductal cancer 8 mm all margins (-); sentinal node (-) patient completed radiation therapy note radiation therapy 11-18-22 reviewed noted medical oncology 11-18-22 reviewed started on ananstrazole/ grade 1 hot flashes Caffeine: 5-8 cups/day in the past nicotine: stopped 13 years ago used to smoke 1 PPD for 20 years chocolate: weekly BCP: stopped 30 years ago, used for about 5 years Family History: cousin maternal: breast cancer 2 maternal cousins: uterine cancer maternal cousin: brain cancer maternal grandmother: esophageal cancer Hormonal History: menarche: 15 A1, breast fed: no, age at first : 22 menopasue: 54 hormones: none Surgical history: laporatomy for a growth on ovary at 34, no cancer vein stripping colonoscopies Medical History: High cholesterol Social History: nicotine: as above alcohol: occasional drugs: Smokes marijuana daily, for 40 years, to keep calm - Constitutional Constitutional: Reports sweats - EENT Eyes: denies blurred vision, denies pain Ears: deny: decreased hearing, tinnitus Ears, nose, mouth and throat: Reports headache, Denies sore throat - Breasts Breasts: bilateral: as per HPI - Cardiovascular Cardiovascular: Denies chest pain, Denies shortness of breath - Respiratory Respiratory: Denies cough, Denies 7 - Gastrointestinal Gastrointestinal: Denies abdominal pain, Denies diarrhea, Denies nausea, Denies vomiting - Genitourinary (Female) Genitourinary: Denies dysuria, Denies hematuria - Menstruation Menstruation: Reports postmenopausal - Musculoskeletal Musculoskeletal: Denies myalgias - Integumentary Integumentary: Denies pruritus, Denies rash - Neurological Neurological: Denies numbness, Denies weakness - Psychiatric Psychiatric: Reports anxiety - Endocrine Endocrine: Reports fatigue, Denies weight change - Hematologic/Lymphatic Comment: none - Allergic/Immunologic Allergic/Immunologic: Reports seasonal allergies Past Medical History Past Medical History: GERD/Reflux, Hyperlipidemia, Thyroid Disorder Additional Past Medical History / Comment(s): dx yrs ago with IBS no longer an issue since eliminting gluten. FATTY LIVER, gestational diabetes, hx hypothyroidism-no current rx History of Any Multi-Drug Resistant Organisms: None Reported Additional Past Surgical History / Comment(s): LAPAROTOMY AND LAPAROSCOPY, RT VARICOSE VEIN STRIPPING, colonocopy Past Anesthesia/Blood Transfusion Reactions: No Reported Reaction Past Psychological History: No Psychological Hx Reported Smoking Status: Former smoker Past Alcohol Use History: Rare Additional Past Alcohol Use History / Comment(s): QUIT SMOKING 2007, was 1 PPD Past Drug Use History: Marijuana Additional Drug Use History / Comment(s): CBD oil. - Past Family History Mother Family Medical History: No Reported History Medications and Allergies Home Medications Medication Instructions Recorded Confirmed Type Cholesterol Pill(Name Unknown) 1 tab PO HS 10/07/20 06/18/22 History Loratadine-Pseudoeph 5-120 mg 1 tab PO QAM 10/07/20 06/18/22 History [Claritin-D 12 Hour] Cyclobenzaprine [Flexeril] 5 mg PO TID 05/19/22 06/18/22 History Allergies Allergy/AdvReac Type Severity Reaction Status Date / Time propoxyphene Allergy "goes into Verified 06/18/22 10:36 [From Darvocet-N] a rage" Objective - Constitutional General appearance: Present: cooperative - EENT Eyes: Present: EOMI ENT: Present: hearing grossly normal - Neck Neck: Present: normal ROM - Respiratory Respiratory: bilateral: CTA - Cardiovascular Heart sounds: normal: S1, S2 - Integumentary Integumentary: Present: normal turgor - Musculoskeletal Musculoskeletal: Present: gait normal - Psychiatric Psychiatric: Present: A&O x's 3, appropriate affect, intact judgment & insight - Additional findings Additional findings: Breast Exam: BRA: 38D Inspection: Bilateral grade 2/3 ptosis Palpation: Right breast: Multi-positional exam fibrocystic changes no dominant masses or nodules of concern Right axilla: No adenopathy of concern Left breast: Well-healed scar from prior surgery, small suture appears to be protruding from the medial aspect of the periareolar incision. Multiple positional exam no dominant masses or nodules of concern Left axilla: No adenopathy of concern Assessment and Plan Assessment: Impression: stage I invasive ductal left breast cancer/ doing well diagnosed May 2022 due for bilateral mammogram in April 2023 completed radiation therapy presently on annestrazole removal of suture medial aspect of left breast incision Plan: bilateral mammogram April 2023 with appointment at that time follow medical oncology follow radiation oncology Procedure: Following informed consent. Concern in the left breast was prepped using alcohol. An 18-gauge needle was used to elevate the suture. The suture was grasped using a forceps. It was cut at the base of the skin. The patient tolerated the procedure in stable condition. CC: Dr. El
== END ==
LOC: WWCWWP 15:23
PROVIDERS: ATTEND Surgery
DX: E03.9 Hypothyroidism, unspecified (principal); E78.00 Pure hypercholesterolemia, unspecified; K21.9 Gastro-esophageal reflux disease without esophagitis; K58.9 Irritable bowel syndrome, unspecified; K76.0 Fatty (change of) liver, not elsewhere classified; Z85.3 Personal history of malignant neoplasm of breast; Z87.891 Personal history of nicotine dependence; Z92.3 Personal history of irradiation; Z88.8 Allergy status to other drugs, medicaments and biological substances; Z91.048 Other nonmedicinal substance allergy status

== ENCOUNTER 2023-02-18 15:11 | Observation (INO) | payer BC ==
--- NOTE | 2023-02-18 15:22 | ED ---
General Adult HPI - General Source: patient, RN notes reviewed Mode of arrival: ambulatory Limitations: no limitations <Erick Stephenson - Last Filed: 02/18/23 15:20> <Usha Mcintyre - Last Filed: 02/19/23 04:37> - General Stated complaint: Chest pain Time Seen by Provider: 02/18/23 15:21 - History of Present Illness Initial comments: 58-year-old female presents emergency department tingling or chest pain. Patient states she's been having some intermittent chest pain. Patient does have a history of hyperlipidemia. Patient states that she was at her PCPs office yesterday Dr. El in which she had had elevated blood pressure. Patie nt states pain returns today. Patient denies any prior cardiac stents. Denies abdominal pain. (Erick Stephenson) 58-year-old female presenting with chief complaint of chest pain. History of hyperlipidemia. Patient states that for the last 3-4 days she has been having intermittent chest pain primarily on the right side of the chest. She does admit to radiation into the right shoulder. She states that this is worse upon exertion, tonight she noticed in particular when she was going up and on the stairs pain severely worsened. She was seen at her PCPs office today and noted that she had an elevated blood pressure, she did not mention the chest pain to her PCP. She states that when these episodes of pain occur she does have shortness of breath associated as well. Denies palpitations, abdominal pain, nausea, vomiting, fever, chills, numbness, tingling, weakness. (Usha Mcintyre) - Related Data Home Medications Medication Instructions Recorded Confirmed Anastrozole 1 mg PO DAILY 11/16/22 02/18/23 Cider Vinegar [Apple Cider Vinegar] 300 mg PO DAILY 11/16/22 02/18/23 [place]-3 Fatty Acids/Fish Oil 1 cap PO DAILY 11/16/22 02/18/23 [[place]-3 Fish Oil 1,200 mg Sfgl] Pravastatin Sodium 80 mg PO DAILY 11/16/22 02/18/23 Calcium Carbonate 1,000 mg PO DAILY 02/18/23 02/18/23 Cholecalciferol [Vitamin D3 (25 50 mcg PO MOWEFR 02/18/23 02/18/23 Mcg = 1000 Iu)] Allergies Allergy/AdvReac Type Severity Reaction Status Date / Time adhesive Allergy Rash/Hives Verified 02/18/23 22:32 latex Allergy Rash/Hives Verified 02/18/23 22:32 gluten AdvReac Nausea & Verified 02/18/23 22:32 Vomiting & Diarrhea propoxyphene AdvReac "goes into Verified 02/18/23 22:32 [From Darvocet-N] a rage" Review of Systems ROS Other: All systems not noted in ROS Statement are negative. <Erick Stephenson - Last Filed: 02/18/23 15:20> ROS Other: All systems not noted in ROS Statement are negative. <Usha Mcintyre - Last Filed: 02/19/23 04:37> ROS Statement: Those systems with pertinent positive or pertinent negative responses have been documented in the HPI. Past Medical History Past Medical History: Cancer, GERD/Reflux, Hyperlipidemia, Thyroid Disorder Additional Past Medical History / Comment(s): FATTY LIVER, gestational diabetes, hx hypothyroidism-no current rx. LT BREAST CANCER-05/2022(lumpectomy and radiation therapy). 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 History of Any Multi-Drug Resistant Organisms: None Reported Past Surgical History: Breast Surgery Additional Past Surgical History / Comment(s): LAPAROTOMY AND LAPAROSCOPY, RT VARICOSE VEIN STRIPPING, [id number](next after 5yr), LT BREAST CORE BX + CANCER. Left breast lumpectomy 2022. Past Anesthesia/Blood Transfusion Reactions: No Reported Reaction Past Psychological History: Anxiety Additional Psychological History / Comment(s): ANXIETY R/T CURRENT MEDICAL DX Smoking Status: Former smoker Past Alcohol Use History: Rare (8 drinks per year.) Additional Past Alcohol Use History / Comment(s): QUIT SMOKING 2011, was 1 PPD Past Drug Use History: Marijuana (Daily use.) Additional Drug Use History / Comment(s): CBD oil. -INSTRUCTED TO REFRAIN FROM USE FOR AT LEAST 24 HOURS PRIOR TO PROCEDURE - Past Family History Mother Family Medical History: Diabetes Mellitus Additional Family Medical History / Comment(s): Maternal first cousin had breast cancer. Father Family Medical History: Myocardial Infarction ([place]) Additional Family Medical History / Comment(s): from [place] at age 36. <Erick Stephenson - Last Filed: 02/18/23 15:20> General Exam <Erick Stephenson - Last Filed: 02/18/23 15:20> Limitations: no limitations General appearance: alert, in no apparent distress Head exam: Present: atraumatic, normocephalic Eye exam: Present: normal appearance Neck exam: Present: normal inspection Respiratory exam: Present: normal lung sounds bilaterally. Absent: respiratory distress, wheezes, rales, rhonchi, stridor Cardiovascular Exam: Present: regular rate, normal rhythm, normal heart sounds. Absent: systolic murmur, diastolic murmur, rubs, gallop, clicks Extremities exam: Present: normal inspection. Absent: pedal edema Neurological exam: Present: alert, oriented X3 Psychiatric exam: Present: normal affect, normal mood Skin exam: Present: warm, dry <Usha Mcintyre - Last Filed: 02/19/23 04:37> - General Exam Comments Initial Comments: Visual Physical Exam Vital signs reviewed General: Well-appearing, nontoxic, no acute distress. Head: Normocephalic, atraumatic Eyes: PERRLA, EOMI ENT: Airway patent Chest: Nonlabored breathing Skin: No visual rash, normal skin tone Neuro: Alert and oriented 3 Musculoskeletal: No gross abnormalities (Erick Stephenson) Course Vital Signs 02/18/23 02/18/23 02/19/23 16:11 20:55 00:01 Temperature 97.8 F 98.7 F 98.6 F Pulse Rate 93 74 81 Respiratory 18 18 18 Rate Blood Pressure 142/87 141/88 119/84 O2 Sat by Pulse 96 98 Oximetry Medical Decision Making <Erick Stephenson - Last Filed: 02/18/23 15:20> - Lab Data Result diagrams: 02/18/23 15:45 02/18/23 15:45 <Usha Mcintyre - Last Filed: 02/19/23 04:37> - Medical Decision Making I completed the quick note portion of this chart signed Erick Stephenson PA-C (Erick Stephenson) Sinus rhythm ventricular rate 63. NC interval 158. QRS 94. QT 370. QTC 377. Was pt. sent in by a medical professional or institution (, [facility], ELECT[employer] BLANKET W[employer]ER, urgent care, hospital, or long-term...) When possible be specific @ -No Did you speak to anyone other than the patient for history (EMS, parent, family, police, friend...)? What history was obtained from this source @ -No Did you review nursing and triage notes (agree or disagree)? Why? @ -I reviewed and agree with nursing and triage notes Were old charts reviewed (outside hosp., previous admission, EMS record, old EKG, old radiological studies, urgent care reports/EKG's, long-term records)? Report findings @ -No old charts were reviewed Differential Diagnosis (chest pain, altered mental status, abdominal pain women, abdominal pain men, vaginal bleeding, weakness, fever, dyspnea, syncope, headache, dizziness, GI bleed, back pain, seizure, CVA, palpatations, mental health, musculoskeletal)? @ -MDM Differential Chest Pain: Stable Angina, Unstable Angina, STEMI, NSTEMI Aortic Dissection, Pneumothorax, Musculoskeletal, Esophageal Spasm GERD, Cholecystitis, Pancreatitis, Zoster This is not meant to be an all-inclusive list. EKG interpreted by me (3pts min.). @ -As above X-rays interpreted by me (1pt min.). @ -chest x-ray shows no acute process CT interpreted by me (1pt min.). @ -None done U/S interpreted by me (1pt. min.). @ -None done What testing was considered but not performed or refused? (CT, X-rays, U/S, labs)? Why? @ -None What meds were considered but not given or refused? Why? @ -None Did you discuss the management of the patient with other professionals (professionals i.e. , PA, ELECTRIC BLANKET WIRER, lab, RT, psych nurse, social scientist, vtc technician, teacher, penal officer, caseworker protective services)? Give summary @ -I spoke with Dr. He who accepted admission Was smoking cessation discussed for >3mins.? @ -No Was critical care preformed (if so, how long)? @ -No Were there social determinants of health that impacted care today? How? (Homelessness, low income, unemployed, alcoholism, drug addiction, transportation, low edu. Level, literacy, decrease access to med. care, skilled nursing, rehab)? @ -No Was there de-escalation of care discussed even if they declined (Discuss DNR or withdrawal of care, Hospice)? DNR status @ -No What co-morbidities impacted this encounter? (DM, HTN, Smoking, COPD, CAD, Cancer, CVA, ARF, Chemo, Hep., AIDS, mental health diagnosis, sleep apnea, morbid obesity)? @ -Hyperlipidemia Was patient admitted / discharged? Hospital course, mention meds given and route, prescriptions, significant lab abnormalities, going to OR and other pertinent info. @ -58-year-old female presented with chief complaint of chest pain ongoing for the last 3-4 days. Intermittent in nature and worse with exertion. History and physical exam were conducted. WBC 10.8. 2 negative troponins are obtained. Negative chest x-ray. EKG shows no ST deviation. Patient will be admitted for observation with evaluation by cardiology in the a.m. Patient is agreeable to this plan. I discussed this case with my attending Dr. Galvan Undiagnosed new problem with uncertain prognosis? @ -No Drug Therapy requiring intensive monitoring for toxicity (Heparin, Nitro, Insulin, Cardizem)? @ -No Were any procedures done? @ -No Diagnosis/symptom? @ -chest pain Acute, or Chronic, or Acute on Chronic? @ -Acute Uncomplicated (without systemic symptoms) or Complicated (systemic symptoms)? @ -Complicated Side effects of treatment? @ -No Exacerbation, Progression, or Severe Exacerbation? @ -No Poses a threat to life or bodily function? How? (Chest pain, [place], [place], pneumonia, PE, COPD, DKA, ARF, appy, cholecystitis, CVA, Diverticulitis, Homicidal, Suicidal, threat to staff... and all critical care pts) @ -yes (Usha Mcintyre) - Lab Data Lab Results 02/18/23 02/18/23 02/18/23 Range/Units 15:45 15:45 15:45 WBC 10.8 H (3.8-10.6) k/uL RBC 5.15 (3.80-5.40) m/uL Hgb 14.6 (11.4-16.0) gm/dL Hct 44.1 (34.0-46.0) % MCV 85.7 (80.0-100.0) fL MCH 28.3 (25.0-35.0) pg MCHC 33.0 (31.0-37.0) g/dL RDW 13.9 (11.5-15.5) % Plt Count 345 (150-450) k/uL MPV 8.0 Neutrophils % 69 % Lymphocytes % 19 % Monocytes % 7 % Eosinophils % 3 % Basophils % 1 % Neutrophils # 7.4 (1.3-7.7) k/uL Lymphocytes # 2.1 (1.0-4.8) k/uL Monocytes # 0.7 (0-1.0) k/uL Eosinophils # 0.3 (0-0.7) k/uL Basophils # 0.1 (0-0.2) k/uL PT 9.7 L (10.0-12.5) sec INR 0.9 (<1.2) APTT 25.9 (22.0-30.0) sec Sodium 140 (137-145) mmol/L Potassium 3.9 (3.5-5.1) mmol/L Chloride 100 (98-107) mmol/L Carbon Dioxide 27 (22-30) mmol/L Anion Gap 13 mmol/L BUN 16 (7-17) mg/dL Creatinine 0.70 (0.52-1.04) mg/dL Est GFR (CKD-EPI)AfAm >90 (>60 ml/min/1.73 sqM) Est GFR (CKD-EPI)NonAf >90 (>60 ml/min/1.73 sqM) Glucose 98 (74-99) mg/dL Calcium 10.3 H (8.4-10.2) mg/dL Magnesium 2.0 (1.6-2.3) mg/dL Total Bilirubin 0.8 (0.2-1.3) mg/dL AST 32 (14-36) U/L ALT 38 H (4-34) U/L Alkaline Phosphatase 119 (38-126) U/L Troponin I (0.000-0.034) ng/mL Total Protein 8.2 (6.3-8.2) g/dL Albumin 4.9 (3.5-5.0) g/dL 02/18/23 02/18/23 Range/Units 15:45 21:34 WBC (3.8-10.6) k/uL RBC (3.80-5.40) m/uL Hgb (11.4-16.0) gm/dL Hct (34.0-46.0) % MCV (80.0-100.0) fL MCH (25.0-35.0) pg MCHC (31.0-37.0) g/dL RDW (11.5-15.5) % Plt Count (150-450) k/uL MPV Neutrophils % % Lymphocytes % % Monocytes % % Eosinophils % % Basophils % % Neutrophils # (1.3-7.7) k/uL Lymphocytes # (1.0-4.8) k/uL Monocytes # (0-1.0) k/uL Eosinophils # (0-0.7) k/uL Basophils # (0-0.2) k/uL PT (10.0-12.5) sec INR (<1.2) APTT (22.0-30.0) sec Sodium (137-145) mmol/L Potassium (3.5-5.1) mmol/L Chloride (98-107) mmol/L Carbon Dioxide (22-30) mmol/L Anion Gap mmol/L BUN (7-17) mg/dL Creatinine (0.52-1.04) mg/dL Est GFR (CKD-EPI)AfAm (>60 ml/min/1.73 sqM) Est GFR (CKD-EPI)NonAf (>60 ml/min/1.73 sqM) Glucose (74-99) mg/dL Calcium (8.4-10.2) mg/dL Magnesium (1.6-2.3) mg/dL Total Bilirubin (0.2-1.3) mg/dL AST (14-36) U/L ALT (4-34) U/L Alkaline Phosphatase (38-126) U/L Troponin I <0.012 <0.012 (0.000-0.034) ng/mL Total Protein (6.3-8.2) g/dL Albumin (3.5-5.0) g/dL Disposition <Erick Stephenson - Last Filed: 02/18/23 15:20> Time of Disposition: 23:12 <Usha Mcintyre - Last Filed: 02/19/23 04:37> Clinical Impression: Chest pain Disposition: ADMITTED IP TO THIS HOSP Condition: Fair
[2023-02-18 17:34] LABS: ALT 38 U/L (4-34); AST 32 U/L (14-36); African American GFR (CKD) >90 (>60 ml/min/1.73 sqM); Albumin 4.9 g/dL (3.5-5.0); Alkaline Phosphatase 119 U/L (38-126); Anion Gap 13 mmol/L; Blood Urea Nitrogen 16 mg/dL (7-17); Calcium 10.3 mg/dL (8.4-10.2); Carbon Dioxide 27 mmol/L (22-30); Chloride 100 mmol/L (98-107); Glucose 98 mg/dL (74-99); Non-African American GFR(CKD) >90 (>60 ml/min/1.73 sqM); Potassium 3.9 mmol/L (3.5-5.1); Sodium 140 mmol/L (137-145); Total Bilirubin 0.8 mg/dL (0.2-1.3); Total Protein 8.2 g/dL (6.3-8.2)
[2023-02-18 17:35] LABS: INR 0.9 (<1.2); Partial Thromboplastin Time 25.9 sec (22.0-30.0); Prothrombin Time 9.7 sec (10.0-12.5)
[2023-02-18 17:50] LABS: Basophils # (A) 0.1 k/uL (0-0.2); Basophils % (A) 1 %; Eosinophils # (A) 0.3 k/uL (0-0.7); Eosinophils % (A) 3 %; HCT 44.1 % (34.0-46.0); HGB 14.6 gm/dL (11.4-16.0); Lymphocytes # (A) 2.1 k/uL (1.0-4.8); Lymphocytes % (A) 19 %; MCH 28.3 pg (25.0-35.0); MCV 85.7 fL (80.0-100.0); Monocytes # (A) 0.7 k/uL (0-1.0); Monocytes % (A) 7 %; Neutrophils # (A) 7.4 k/uL (1.3-7.7); Neutrophils % (A) 69 %; Platelet Count 345 k/uL (150-450); RBC 5.15 m/uL (3.80-5.40); RDW 13.9 % (11.5-15.5); WBC 10.8 k/uL (3.8-10.6)
--- NOTE | 2023-02-18 18:30 | XR ---
EXAMINATION TYPE: XR chest 2V DATE OF EXAM: 02/18/2023 6:06 PM CLINICAL INDICATION:Female, 58 years old with history of Chest Pain; [facility] COMPARISON: Chest radiographs from 07/01/2022 TECHNIQUE: XR chest 2V Frontal and lateral views of the chest. FINDINGS: Lungs/Pleura: There is no evidence of pleural effusion, focal consolidation, or pneumothorax. Pulmonary vascularity: Unremarkable. Heart/mediastinum: Cardiomediastinal silhouette is unremarkable. Musculoskeletal: No acute osseous pathology. IMPRESSION: No acute cardiopulmonary disease/process.
[2023-02-18] MEDS ORDERED: ACETAMINOPHEN TAB 325 MG TAB PO PRN (23:36)
[2023-02-18] MEDS ORDERED: NALOXONE 0.4 MG/ML 1 ML VIAL IV PRN (23:36)
[2023-02-18] MEDS ORDERED: ASPIRIN 81 MG PO STA (23:38)
[2023-02-18] MEDS ORDERED: SODIUM CHLORIDE 0.9% 1,000 ML IV SCH (23:45)
[2023-02-19 07:39] VITALS: BP 121/81; PULSE 84; RESP 18; TEMP 97.5
--- NOTE | 2023-02-19 13:26 | CA ---
Transthoracic Echo Report Name: Cristina Georges Age: 58 Gender: F : 1965 Exam Date: 02/19/2023 08:57 Exam Location: [facility] Ht (in): 66 Wt (lb): 218 Ordering Physician: Megan Avila Attending/Referring Phys: [id number], [place] Wirer Helper Subha Campbell [facility] Procedure CPT: Indications: shortness of breath/chest pain Cardiac Hx: Technical Quality: Technically difficult study Contrast 1: Definity Total Dose (mL): 6 Contrast 2: Total Dose (mL): MEASUREMENTS (Male / Female) Normal Values 2D ECHO LV Diastolic Diameter PLAX 4.3 cm 4.2 - 5.9 / 3.9 - 5.3 cm LV Systolic Diameter PLAX 2.8 cm IVS Diastolic Thickness 1.0 cm 0.6 - 1.0 / 0.6 - 0.9 cm LVPW Diastolic Thickness 1.0 cm 0.6 - 1.0 / 0.6 - 0.9 cm LV Relative Wall Thickness 0.5 LVOT Diameter 2.0 cm Ascending Aorta Diameter 2.9 cm M-MODE Aortic Root Diameter MM 2.9 cm LA Systolic Diameter MM 3.2 cm LA Ao Ratio MM 1.1 AV Cusp Separation MM 2.0 cm DOPPLER AV Peak Velocity 116.3 cm/s AV Peak Gradient 5.4 mmHg AV Mean Velocity 78.9 cm/s AV Mean Gradient 3.0 mmHg AV Velocity Time Integral 20.8 cm LVOT Peak Velocity 105.9 cm/s LVOT Peak Gradient 4.5 mmHg LVOT Velocity Time Integral 18.9 cm LVOT Stroke Volume 59.6 cm??? LVOT Stroke Volume Index 28.7 ml/m??? LVOT Cardiac Index 2289.4 cm???/min???m??? AV Area Cont Eq vti 2.9 cm??? AV Area Cont Eq pk 2.9 cm??? Mitral E Point Velocity 59.1 cm/s Mitral A Point Velocity 76.0 cm/s Mitral E to A Ratio 0.8 MV Deceleration Time 225.1 ms LV E' Lateral Velocity 10.2 cm/s Mitral E to LV E' Lateral Ratio 5.8 LV E' Septal Velocity 5.6 cm/s Mitral E to LV E' Septal Ratio 10.5 TR Peak Velocity 175.8 cm/s TR Peak Gradient 12.4 mmHg Right Atrial Pressure 8.0 mmHg Pulmonary Artery Systolic Pressu 20.4 mmHg Right Ventricular Systolic Press 20.4 mmHg FINDINGS Left Ventricle Mildly increased left ventricular wall thickness. Left ventricular cavity size normal. Normal left ventricular systolic function with no obvious regional wall motion abnormalities. Left ventricular ejection fraction is estimated at 55- 60%. Right Ventricle Normal right ventricular size. Right Atrium Normal right atrial size. Left Atrium Normal left atrial size. Mitral Valve Structurally normal mitral valve. No mitral regurgitation. Aortic Valve Trileaflet aortic valve. No aortic valve stenosis or regurgitation. Tricuspid Valve Structurally normal tricuspid valve. Trace tricuspid regurgitation. Pulmonic Valve Pulmonic valve not well visualized. Pericardium No pericardial effusion. Aorta Normal size aortic root and proximal ascending aorta. CONCLUSIONS Normal LV size and systolic function Prominent posterior pericardial stripe Previewed by: Dr. Bryant Britt MD (Electronically Signed) Final Date: 19 February 2023 13:25
[2023-02-19 13:55] LABS: Chol/HDL Ratio 3.69 Ratio
--- NOTE | 2023-02-19 15:01 | P.HPIM ---
History of Present Illness H&P Date: 02/19/23 History of present illness; patient is a 58-year-old lady with past medical his tory significant for hyperlipidemia who brought to the ER for chest pain. Patient stated that she has been having intermittent chest pain the last few days. Chest pain is located in the right side, last a few minutes, radiates to the right shoulder no relieving factors associated with this chest pain. Patient did notice that yesterday this chest pain was brought about by exertion as she was walking up the stairs. There was no complain of any shortness of breath associated with chest pain. No nausea, vomiting abdominal pain associated with this chest pain. Patient was recently seen in her PCPs office and also found to have elevated blood pressure as well. Because of this chest pain, patient came to the ER Initial lab work done in the ER showed WBC 10.8, hemoglobin 14.6, platelet count 345, sodium 140, potassium 3.9, BUN 16, creatinine 0.70 troponin 0.012 EKG done in the ER showed heart rate of 63, no ST segment elevation or depression seen, no T-wave inversions seen. Chest x-ray done in the ER showed no acute cardiopulmonary process Patient admitted to internal medicine service REVIEW OF SYSTEMS: CONSTITUTIONAL: No fever, no malaise, no fatigue. HEENT: No recent visual problems or hearing problems. Denied any sore throat. CARDIOVASCULAR: As mentioned in HPI PULMONARY: No shortness of breath, no cough, no hemoptysis. GASTROINTESTINAL: No diarrhea, no nausea, no vomiting, no abdominal pain. NEUROLOGICAL: No headaches, no weakness, no numbness. HEMATOLOGICAL: Denies any bleeding or petechiae. GENITOURINARY: Denies any burning micturition, frequency, or urgency. MUSCULOSKELETAL/RHEUMATOLOGICAL: Denies any joint pain, swelling, or any muscle pain. ENDOCRINE: Denies any polyuria or polydipsia. The rest of the 14-point review of systems is negative. PHYSICAL EXAMINATION: GENERAL: The patient is alert and oriented x3, not in any acute distress. Well developed, well nourished. HEENT: Pupils are round and equally reacting to light. EOMI. No scleral icterus. No conjunctival pallor. Normocephalic, atraumatic. No pharyngeal erythema. No thyromegaly. CARDIOVASCULAR: S1 and S2 present. No murmurs, rubs, or gallops. PULMONARY: Chest is clear to auscultation, no wheezing or crackles. ABDOMEN: Soft, nontender, nondistended, normoactive bowel sounds. No palpable organomegaly. MUSCULOSKELETAL: No joint swelling or deformity. EXTREMITIES: No cyanosis, clubbing, or pedal edema. NEUROLOGICAL: Gross neurological examination did not reveal any focal deficits. SKIN: No rashes. Assessment and plan Chest pain ruled out acute coronary syndrome Hyperlipidemia Monitor vital signs Monitor CBC Monitor CMP Continue telemetry monitoring Trend troponins. Ordered d-dimer ordered 2-D echo Resume home meds Consult cardiology Labs and medication were reviewed.. Continue same treatment. Continue with symptomatic treatment. Resume home medication. Monitor labs and vitals. DVT and GI prophylaxis. Further recommendations as per clinical course of the patient Dictation was produced using [employer] dictation software. please excuse any grammatical, word or spelling errors. Past Medical History Past Medical History: Cancer, GERD/Reflux, Hyperlipidemia, Thyroid Disorder Additional Past Medical History / Comment(s): FATTY LIVER, gestational diabetes, hx hypothyroidism-no current rx. LT BREAST CANCER-05/2022(lumpectomy and radiation therapy). 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 History of Any Multi-Drug Resistant Organisms: None Reported Past Surgical History: Breast Surgery Additional Past Surgical History / Comment(s): LAPAROTOMY AND LAPAROSCOPY, RT VARICOSE VEIN STRIPPING, [id number](next after 5yr), LT BREAST CORE BX + CANCER. Left breast lumpectomy 2022. Past Anesthesia/Blood Transfusion Reactions: No Reported Reaction Past Psychological History: Anxiety Additional Psychological History / Comment(s): ANXIETY R/T CURRENT MEDICAL DX Smoking Status: Former smoker Past Alcohol Use History: Rare Additional Past Alcohol Use History / Comment(s): QUIT SMOKING 2011, was 1 PPD Past Drug Use History: Marijuana Additional Drug Use History / Comment(s): CBD oil. -INSTRUCTED TO REFRAIN FROM USE FOR AT LEAST 24 HOURS PRIOR TO PROCEDURE - Past Family History Mother Family Medical History: Diabetes Mellitus Additional Family Medical History / Comment(s): Maternal first cousin had breast cancer. Father Family Medical History: Myocardial Infarction ([place]) Additional Family Medical History / Comment(s): from [place] at age 36. Medications and Allergies Home Medications Medication Instructions Recorded Confirmed Type Anastrozole 1 mg PO DAILY 11/16/22 02/18/23 History Cider Vinegar [Apple Cider Vinegar] 300 mg PO DAILY 11/16/22 02/18/23 History [place]-3 Fatty Acids/Fish Oil 1 cap PO DAILY 11/16/22 02/18/23 History [[place]-3 Fish Oil 1,200 mg Sfgl] Pravastatin Sodium 80 mg PO DAILY 11/16/22 02/18/23 History Calcium Carbonate 1,000 mg PO DAILY 02/18/23 02/18/23 History Cholecalciferol [Vitamin D3 (25 50 mcg PO MOWEFR 02/18/23 02/18/23 History Mcg = 1000 Iu)] Allergies Allergy/AdvReac Type Severity Reaction Status Date / Time adhesive Allergy Rash/Hives Verified 02/18/23 22:32 latex Allergy Rash/Hives Verified 02/18/23 22:32 gluten AdvReac Nausea & Verified 02/18/23 22:32 Vomiting & Diarrhea propoxyphene AdvReac "goes into Verified 02/18/23 22:32 [From Darvocet-N] a rage" Physical Exam Vitals: Vital Signs Temp Pulse Pulse Resp BP BP Pulse Ox 02/19/23 07:00 97.5 F L 84 18 121/81 97 02/19/23 02:45 80 17 02/19/23 02:00 97.4 F L 80 17 138/80 98 02/19/23 00:01 98.6 F 81 18 119/84 98 02/18/23 20:55 98.7 F 74 18 141/88 02/18/23 16:11 97.8 F 93 18 142/87 96 Intake and Output 02/18/23 02/19/23 02/19/23 22:59 06:59 14:59 Other: Voiding Method Toilet # Voids 1 Weight 98.883 kg 98.883 kg Results CBC & Chem 7: 02/18/23 15:45 02/18/23 15:45 Labs: Abnormal Lab Results - Last 24 Hours (Table) 02/18/23 02/18/23 02/18/23 Range/Units 15:45 15:45 15:45 WBC 10.8 H (3.8-10.6) k/uL PT 9.7 L (10.0-12.5) sec Calcium 10.3 H (8.4-10.2) mg/dL ALT 38 H (4-34) U/L Thrombosis Risk Factor Assmnt - Choose All That Apply Any of the Below Risk Factors Present?: Yes Each Factor Represents 1 point: Age 41-60 years, Obesity (BMI >25) Other Risk Factors: No Other congenital or acquired thrombophilia - If yes, enter type in comment: No Thrombosis Risk Factor Assessment Total Risk Factor Score: 2 Thrombosis Risk Factor Assessment Level: Low Risk
--- NOTE | 2023-02-19 15:40 | P.CRDCN ---
History of Present Illness Consult date: 02/19/23 Consult reason: chest pain History of present illness: The patient is a 58-year-old female with past medical history of breast cancer and dyslipidemia, who presented to the hospital with new onset of chest discomfort. This was left anterior chest wall discomfort which radiated into her left shoulder. The patient states she has also had shortness of breath over the last several weeks. She was recently started on hormone therapy within the last several months for ductal carcinoma. DIAGNOSTICS: Both EKG shows sinus rhythm without ST or T-wave abnormalities Echocardiogram reveals preserved LV function and no significant valvular abnormalities. Prominent posterior pericardial stripe noted Chest x-ray shows no acute cardiopulmonary disease or process Lab data: WBC 10.8, hemoglobin 14.6, hematocrit 44.1, platelet 345, sodium 140, potassium 3.9, BUN 16, creatinine 0.70, troponins negative 3, triglycerides 117, LDL 134, hemoglobin A1c 5.8 REVIEW OF SYSTEMS: No fever or chills. No cough or expectoration. No diaphoresis. Patient denies headache, dizziness, blurred vision, double vision. Patient denies any stomach discomfort. No nausea, vomiting. No hematochezia. No hematemesis. Denies any black stools or blood in his stools. Denies dysuria or hematuria. No muscle weakness or numbness. PHYSICAL EXAMINATION: This is a 58-year-old female in no apparent distress at the time of my examination. HEENT: Head is atraumatic, normocephalic. Pupils are equal, round. There is no jugular venous distention. No carotid bruit is heard. CHEST EXAMINATION: Lungs are clear to auscultation. No chest wall tenderness is noted on palpation or with deep breathing. HEART EXAMINATION: Heart regular rate and rhythm. S1, S2 heard. No murmurs, ga llops or rub. ABDOMEN: Soft, nontender. Bowel sounds are heard. No organomegaly noted. EXTREMITIES: 2+ peripheral pulses with no evidence of peripheral edema and no calf tenderness noted. NEUROLOGIC EXAMINATION: Patient is awake, alert and oriented x3. FINAL ASSESSMENT AND PLAN: Chest discomfort, likely musculoskeletal Shortness of breath Dyslipidemia, previously noncompliant with statin regimen Breast cancer Prediabetes, hemoglobin A1c 5.8 Posterior pericardial stripe, likely secondary to recent viral infection PLAN: Continue home dyslipidemia management Outpatient follow-up with Dr. Britt in 3 weeks I am dictating on behalf of Dr Bryant Britt's history/physical and assessment/pl an. Past Medical History Past Medical History: Cancer, GERD/Reflux, Hyperlipidemia, Thyroid Disorder Additional Past Medical History / Comment(s): FATTY LIVER, gestational diabetes, hx hypothyroidism-no current rx. LT BREAST CANCER-05/2022(lumpectomy and radiation therapy). 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 History of Any Multi-Drug Resistant Organisms: None Reported Past Surgical History: Breast Surgery Additional Past Surgical History / Comment(s): LAPAROTOMY AND LAPAROSCOPY, RT VARICOSE VEIN STRIPPING, [id number](next after 5yr), LT BREAST CORE BX + CANCER. Left breast lumpectomy 2022. Past Anesthesia/Blood Transfusion Reactions: No Reported Reaction Past Psychological History: Anxiety Additional Psychological History / Comment(s): ANXIETY R/T CURRENT MEDICAL DX Smoking Status: Former smoker Past Alcohol Use History: Rare Additional Past Alcohol Use History / Comment(s): QUIT SMOKING 2011, was 1 PPD Past Drug Use History: Marijuana Additional Drug Use History / Comment(s): CBD oil. -INSTRUCTED TO REFRAIN FROM USE FOR AT LEAST 24 HOURS PRIOR TO PROCEDURE - Past Family History Mother Family Medical History: Diabetes Mellitus Additional Family Medical History / Comment(s): Maternal first cousin had breast cancer. Father Family Medical History: Myocardial Infarction ([place]) Additional Family Medical History / Comment(s): from [place] at age 36. Medications and Allergies Home Medications Medication Instructions Recorded Confirmed Type Anastrozole 1 mg PO DAILY 11/16/22 02/18/23 History Cider Vinegar [Apple Cider Vinegar] 300 mg PO DAILY 11/16/22 02/18/23 History Ulysses-3 Fatty Acids/Fish Oil 1 cap PO DAILY 11/16/22 02/18/23 History [Ulysses-3 Fish Oil 1,200 mg Sfgl] Pravastatin Sodium 80 mg PO DAILY 11/16/22 02/18/23 History Calcium Carbonate 1,000 mg PO DAILY 02/18/23 02/18/23 History Cholecalciferol [Vitamin D3 (25 50 mcg PO MOWEFR 02/18/23 02/18/23 History Mcg = 1000 Iu)] Allergies Allergy/AdvReac Type Severity Reaction Status Date / Time adhesive Allergy Rash/Hives Verified 02/18/23 22:32 latex Allergy Rash/Hives Verified 02/18/23 22:32 gluten AdvReac Nausea & Verified 02/18/23 22:32 Vomiting & Diarrhea propoxyphene AdvReac "goes into Verified 02/18/23 22:32 [From Darvocet-N] a rage" Physical Exam Vitals: Vital Signs Temp Pulse Pulse Resp BP BP Pulse Ox 02/19/23 14:00 84 18 02/19/23 07:00 97.5 F L 84 18 121/81 97 02/19/23 02:45 80 17 02/19/23 02:00 97.4 F L 80 17 138/80 98 02/19/23 00:01 98.6 F 81 18 119/84 98 02/18/23 20:55 98.7 F 74 18 141/88 02/18/23 16:11 97.8 F 93 18 142/87 96 Intake and Output 02/19/23 02/19/23 02/19/23 06:59 14:59 22:59 Other: Voiding Method Toilet Toilet # Voids 1 3 Weight 98.883 kg Results 02/18/23 15:45 02/18/23 15:45 Cardiac Enzymes 02/18/23 02/18/23 02/18/23 Range/Units 15:45 15:45 21:34 AST 32 (14-36) U/L Troponin I <0.012 <0.012 (0.000-0.034) ng/mL 02/19/23 Range/Units 03:45 AST (14-36) U/L Troponin I <0.012 (0.000-0.034) ng/mL Coagulation 02/18/23 Range/Units 15:45 PT 9.7 L (10.0-12.5) sec APTT 25.9 (22.0-30.0) sec Lipids 02/19/23 Range/Units 09:30 Triglycerides 117.00 (0.00-149.00) mg/dL Cholesterol 216.00 H (0.00-200.00) mg/dL HDL Cholesterol 58.60 (40.00-60.00) mg/dL Cholesterol/HDL Ratio 3.69 Ratio CBC 02/18/23 Range/Units 15:45 WBC 10.8 H (3.8-10.6) k/uL RBC 5.15 (3.80-5.40) m/uL Hgb 14.6 (11.4-16.0) gm/dL Hct 44.1 (34.0-46.0) % Plt Count 345 (150-450) k/uL Comprehensive Metabolic Panel 02/18/23 Range/Units 15:45 Sodium 140 (137-145) mmol/L Potassium 3.9 (3.5-5.1) mmol/L Chloride 100 (98-107) mmol/L Carbon Dioxide 27 (22-30) mmol/L BUN 16 (7-17) mg/dL Creatinine 0.70 (0.52-1.04) mg/dL Glucose 98 (74-99) mg/dL Calcium 10.3 H (8.4-10.2) mg/dL AST 32 (14-36) U/L ALT 38 H (4-34) U/L Alkaline Phosphatase 119 (38-126) U/L Total Protein 8.2 (6.3-8.2) g/dL Albumin 4.9 (3.5-5.0) g/dL Current Medications Generic Name Dose Route Start Last Admin Trade Name Freq PRN Reason Stop Dose Admin Acetaminophen 650 mg 02/18/23 23:36 Acetaminophen Tab 325 Mg Tab PO Q6HR PRN Mild Pain or Fever > 100.5 Calcium Carbonate/Glycine 1,000 mg 02/20/23 09:00 Calcium Carbonate 500 Mg Chewable PO DAILY LUIS ALBERTO Cholecalciferol 50 mcg 02/21/23 09:00 Cholecalciferol 25 Mcg (1000 Iu) Tablet PO MOWEFR LUIS ALBERTO Naloxone HCl 0.2 mg 02/18/23 23:36 Naloxone 0.4 Mg/Ml 1 Ml Vial IV Q2M PRN Opioid Reversal Pravastatin Sodium 80 mg 02/20/23 09:00 Pravastatin Sodium 80 Mg Tab PO DAILY LUIS ALBERTO Intake and Output 02/19/23 02/19/23 02/19/23 06:59 14:59 22:59 Other: Voiding Method Toilet Toilet # Voids 1 3 Weight 98.883 kg 02/18/23 15:45 02/18/23 15:45
[2023-02-20] MEDS ORDERED: PRAVASTATIN SODIUM 80 MG TAB PO SCH (09:00)
[2023-02-20] MEDS ORDERED: CALCIUM CARBONATE 500 MG CHEWABLE PO SCH (09:00)
[2023-02-21] MEDS ORDERED: CHOLECALCIFEROL 25 MCG (1000 IU) TABLET PO SCH (09:00)
== END 2023-02-19 15:37 | disposition home or self-care (01) ==
LOC: EC 15:11 → 6NMEDSUR 23:38
PROVIDERS: ADMIT Internal Medicine; ATTEND Internal Medicine
DX: R07.89 Other chest pain (principal); E78.5 Hyperlipidemia, unspecified; M25.511 Pain in right shoulder; R03.0 Elevated blood-pressure reading, without diagnosis of hypertension; R73.03 Prediabetes; K90.41 Non-celiac gluten sensitivity; K21.9 Gastro-esophageal reflux disease without esophagitis; E03.9 Hypothyroidism, unspecified; K76.0 Fatty (change of) liver, not elsewhere classified; E66.9 Obesity, unspecified; Z68.35 Body mass index [BMI] 35.0-35.9, adult; F41.9 Anxiety disorder, unspecified; Z79.811 Long term (current) use of aromatase inhibitors; Z79.899 Other long term (current) drug therapy; Z91.040 Latex allergy status; Z88.5 Allergy status to narcotic agent; Z91.048 Other nonmedicinal substance allergy status; Z86.32 Personal history of gestational diabetes; Z85.3 Personal history of malignant neoplasm of breast; Z92.3 Personal history of irradiation; Z98.890 Other specified postprocedural states; Z87.891 Personal history of nicotine dependence; Z91.148 Patient's other noncompliance with medication regimen for other reason; Z86.19 Personal history of other infectious and parasitic diseases; Z82.49 Family history of ischemic heart disease and other diseases of the circulatory system; Z83.3 Family history of diabetes mellitus; Z80.3 Family history of malignant neoplasm of breast
CPT/HCPCS: 96360; 96361; 99285; 36415; 93005; 93306; 85379; 80061; 80053; 83735; 84484 ×2; 85025; 85610; 85730; 83036; 71046; G0378 ×2; Q9957

== ENCOUNTER → 2023-03-02 | Outpatient (CLI) | payer BC ==
--- NOTE | 2023-03-02 12:23 | US ---
EXAMINATION TYPE: US abdomen complete DATE OF EXAM: 03/02/2023 COMPARISON: 05/10/2017 CLINICAL INDICATION: Female, 58 years old with history of R10.9 Abdominal pain; Pain TECHNIQUE: Multiple sonographic images of the abdomen are obtained. FINDINGS: EXAM MEASUREMENTS: Liver Length: 15.7 cm Gallbladder Wall: .2 cm CBD: .5 cm Spleen: 9.3 cm Right Kidney: 11.3 x 4.3 x 4.5 cm Left Kidney: 10.2 x 5.7 x 4.0 cm Pancreas: wnl Liver: The parenchyma is diffusely echogenic. No focal lesion seen. Gallbladder: wnl CBD: wnl Spleen: wnl Right Kidney: wnl Left Kidney: wnl Upper IVC: wnl Abd Aorta: Proximal abdominal aorta ectatic at 2.9 cm. IMPRESSION: 1. At least moderate hepatic steatosis, new from 2018. Correlate with LFTs, lipid profile, and patien t risk factors. 2. No gallstones or biliary ductal dilatation.
== END | disposition home or self-care (01) ==
LOC: RADUSWWP 07:34
PROVIDERS: ATTEND Internal Medicine Geriatric Medicine
DX: K76.0 Fatty (change of) liver, not elsewhere classified (principal)
CPT/HCPCS: 76700

== ENCOUNTER → 2023-03-24 | Outpatient (CLI) | payer BC ==
--- NOTE | 2023-03-24 09:28 | NM ---
EXAMINATION TYPE: NM hepatobiliary w EF DATE OF EXAM: 03/24/2023 9:24 AM COMPARISON: 06/08/2017 CLINICAL INDICATION:Female, 58 years old with history of R10.9 UNSPECIFIED ABDOMINAL PAIN; TECHNIQUE: The patient was given 4.8 mCi of Technetium 99m-Mebrofenin as a radiotracer and multiple scintigraphic images were obtained of the abdomen. Gallbladder function was also assessed after the a dministration of ensure drink and additional scintigraphic images were obtained of the abdomen. A reg ion of interest was drawn over the gallbladder and a timing activity curve was generated. The gallbla dder ejection fraction was calculated. FINDINGS: Normal uptake of radiotracer was identified within the liver with excretion into the hepatic and comm on biliary ducts . There was normal progressive washout of the liver over the course of the study. Ra diotracer uptake within the gallbladder at 240 seconds as well as small bowel activity was identified . Maximum calculated gallbladder ejection fraction is: 86% at 30 minutes (Normal gallbladder ejection fraction is > 35%) IMPRESSION: 1. Normal hepatobiliary scan. 2. Normal ejection fraction.
== END | disposition home or self-care (01) ==
LOC: RADNMMAIN 06:59
PROVIDERS: ATTEND Family Medicine
DX: R10.9 Unspecified abdominal pain (principal)
CPT/HCPCS: 78226; A9537

== ENCOUNTER → 2023-04-28 | Outpatient (CLI) | payer BC ==
[2023-04-29 02:58] LABS: Blood Urea Nitrogen 14.7 mg/dL (9.0-27.0); Carbon Dioxide 25.1 mmol/L (21.6-31.8); Chloride 102 mmol/L (96-109); Glucose 104 mg/dL (70-110); Potassium 4.1 mmol/L (3.5-5.5); Sodium 141 mmol/L (135-145)
[2023-04-29 02:59] LABS: ALT 35 U/L (8-44); AST 24 U/L (13-35); Albumin 4.9 g/dL (3.8-4.9); Albumin/Globulin Ratio 1.63 Ratio (1.60-3.17); Alkaline Phosphatase 128 U/L (41-126); Calcium 10.8 mg/dL (8.7-10.3); Total Bilirubin 0.4 mg/dL (0.3-1.2); Total Protein 7.9 g/dL (6.2-8.2)
== END | disposition home or self-care (01) ==
LOC: LABWHC1 15:46
PROVIDERS: ATTEND Nurse Practitioner Family
DX: K76.0 Fatty (change of) liver, not elsewhere classified (principal); R10.9 Unspecified abdominal pain
CPT/HCPCS: 36415; 80053; 81596; 83516

== ENCOUNTER → 2023-05-16 | Outpatient (CLI) | payer BC ==
--- NOTE | 2023-05-16 15:40 | MM ---
Reason for Exam: Hx of breast cancer, conservation therapy. Last mammogram was performed 1 year(s) and 1 month(s) ago. Patient History: Menarche at age 15. First Full-Term at age 22. Postmenopausal. Breast cancer, left, age 57. Breast cancer, left, age 57. Patient used Hormonal Contraceptives for 2 years. 07/27/2022, Lumpectomy on the Left side. 07/27/2022, Malignant US breast localization LT on the left side. 06/02/2022, Malignant US biopsy breast VAD LT on the left side. Prior Study Comparison: 01/06/2016 Bilateral Screening Mammogram, [facility]. 05/13/2022 Bilateral MG screening mammo w CAD, [facility]. 05/18/2022 Left US breast workup limited LT, [facility]. 06/02/2022 Left MG diagnostic mammo LT wo CAD., [facility]. 07/27/2022 Left MG diagnostic mammo LT wo CAD., [facility]. Tissue Density: There are scattered areas of fibroglandular density. Findings: Analyzed By CAD. There is a new area of increased density at the postsurgical site. Multiple surgical clips are present. No suspicious recurrent mass is evident. Benign punctate calcifications within the right breast. Some benign curvilinear calcifications within the left breast. No suspicious groups of microcalcifications, spiculated or lobular masses, architectural distortion or other secondary signs of malignancy are mammographically apparent.There is a new area of increased density at the postsurgical site. Multiple surgical clips are present. No suspicious recurrent mass is evident. Benign punctate calcifications within the right breast. Some benign curvilinear calcifications within the left breast. There is a skin lesion in the region lower inner left breast. No suspicious groups of microcalcifications, spiculated or lobular masses, architectural distortion or other secondary signs of malignancy are mammographically apparent. Overall Assessment: Benign, BI-RAD 2 Management: Diagnostic Mammogram of both breasts in 1 year. A negative mammogram report should not preclude additional follow up of suspicious palpable abnormalities. Patient should continue monthly self breast exam. A clinical breast exam by your physician is recommended on an annual basis and results should be correlated with mammographic findings. Electronically signed and approved by: Yoan Connors D.O. Radiologis
== END | disposition home or self-care (01) ==
LOC: RADMAMWWP 14:53
PROVIDERS: ATTEND Surgery
DX: R92.323 Mammographic fibroglandular density, bilateral breasts (principal); Z78.0 Asymptomatic menopausal state; Z85.3 Personal history of malignant neoplasm of breast
CPT/HCPCS: 77062; 77066

== ENCOUNTER → 2023-05-20 | Outpatient (CLI) | payer BC ==
--- NOTE | 2023-05-20 15:16 | P.PN ---
Subjective Progress Note Date: 05/20/23 12/08/22 Invasive ductal carcinoma left breast Cristina is a 57-year-old white female seen in consultation for Dr. El regarding a left breast invasive ductal carcinoma. She underwent a bilateral screening mammogram on . This revealed a new 9-10 mm spiculated irregular mass in the left breast approximately 6 cm from the nipple. An ultrasound was then recommended. Nothing of concern was seen in the right breast and ultrasound revealed an 8 x 5 mm lesion at the 11:30 to 12 o'clock position. Core biopsy was performed on . Pathology results revealed an invasive ductal carcinoma ER/DE positive HER-2/mina negative grade 2. The patient does not feel any new lumps masses or nodules of concern. This was a routine screening mammogram. Her last mammogram prior to this was 4 years ago. She is not complaining of any nipple discharge or skin changes. She has not had any recent trauma or infection in the breast. The patients case was presented at tumor board on 06-22-22. The consensus was for a lumpectomy and sentinel node biopsy. She will have radiation therapy to follow. She will have hormone therapy following the radiation therapy. I have called the patient and discussed this with her. She is in agreement. She will have an Oncotype done on the lumpectomy specimen. Surgery is scheduled for July 29. 12-08-22 Is not complaining of any new lumps masses or nodules of concern in either breast, does complain of a suture that is protruding from the periareolar area in the medial aspect of the left breast 07-27-22 lumpectomy and SNB; Grade 2 invasive ductal cancer 8 mm all margins (-); sentinal node (-) patient completed radiation therapy note radiation therapy 11-18-22 reviewed noted medical oncology 11-18-22 reviewed started on ananstrazole/ grade 1 hot flashes 05-20-23 07-27-22 lumpectomy and SNB; Grade 2 invasive ductal cancer 8 mm all margins (-); sentinal node (-) oncptype score: 20, no chemotherapy patient completed radiation therapy note radiation therapy 11-18-22 reviewed noted medical oncology 11-18-22 reviewed started on ananstrazole/ grade 1 hot flashes bilateral mammogram on 05-16-23 BIRAD 2 personally reviewed note 03-15-23 reviewed medical oncology She was admitted in February with chest pain, but was told it was her gallbladder she is having this evaluated Caffeine: 5-8 cups/day in the past nicotine: stopped 13 years ago used to smoke 1 PPD for 20 years chocolate: weekly BCP: stopped 30 years ago, used for about 5 years Family History: cousin maternal: breast cancer 2 maternal cousins: uterine cancer maternal cousin: brain cancer maternal grandmother: esophageal cancer Hormonal History: menarche: 15 A1, breast fed: no, age at first : 22 menopasue: 54 hormones: none Surgical history: laporatomy for a growth on ovary at 34, no cancer vein stripping colonoscopies Medical History: High cholesterol Social History: nicotine: as above alcohol: occasional drugs: Smokes marijuana daily, for 40 years, to keep calm - Constitutional Constitutional: Reports sweats - EENT Eyes: denies blurred vision, denies pain Ears: deny: decreased hearing, tinnitus Ears, nose, mouth and throat: Reports headache, Denies sore throat - Breasts Breasts: bilateral: as per HPI - Cardiovascular Cardiovascular: Denies chest pain, Denies shortness of breath - Respiratory Respiratory: Denies cough - Gastrointestinal Gastrointestinal: Denies abdominal pain, Denies diarrhea, Denies nausea, Denies vomiting - Genitourinary (Female) Genitourinary: Denies dysuria, Denies hematuria - Menstruation Menstruation: Reports postmenopausal - Musculoskeletal Musculoskeletal: Denies myalgias - Integumentary Integumentary: Denies pruritus, Denies rash - Neurological Neurological: Denies numbness, Denies weakness - Psychiatric Psychiatric: Reports anxiety - Endocrine Endocrine: Reports fatigue, Denies weight change - Hematologic/Lymphatic Comment: none - Allergic/Immunologic Allergic/Immunologic: Reports seasonal allergies Past Medical History Past Medical History: GERD/Reflux, Hyperlipidemia, Thyroid Disorder Additional Past Medical History / Comment(s): dx yrs ago with IBS no longer an issue since eliminting gluten. FATTY LIVER, gestational diabetes, hx hypothyroidism-no current rx History of Any Multi-Drug Resistant Organisms: None Reported Additional Past Surgical History / Comment(s): LAPAROTOMY AND LAPAROSCOPY, RT VARICOSE VEIN STRIPPING, colonocopy Past Anesthesia/Blood Transfusion Reactions: No Reported Reaction Past Psychological History: No Psychological Hx Reported Smoking Status: Former smoker Past Alcohol Use History: Rare Additional Past Alcohol Use History / Comment(s): QUIT SMOKING 2007, was 1 PPD Past Drug Use History: Marijuana Additional Drug Use History / Comment(s): CBD oil. - Past Family History Mother Family Medical History: No Reported History Medications and Allergies Home Medications Medication Instructions Recorded Confirmed Type Cholesterol Pill(Name Unknown) 1 tab PO HS 10/07/20 06/18/22 History Loratadine-Pseudoeph 5-120 mg 1 tab PO QAM 10/07/20 06/18/22 History [Claritin-D 12 Hour] Cyclobenzaprine [Flexeril] 5 mg PO TID 05/19/22 06/18/22 History Allergies Allergy/AdvReac Type Severity Reaction Status Date / Time propoxyphene Allergy "goes into Verified 06/18/22 10:36 [From Andrest-N] a rage" Objective - Constitutional General appearance: Present: cooperative - EENT ENT: Present: hearing grossly normal - Neck Neck: Present: normal ROM - Respiratory Respiratory: bilateral: CTA - Cardiovascular Rhythm: regular Heart sounds: normal: S1, S2 - Integumentary Integumentary: Present: normal turgor - Musculoskeletal Musculoskeletal: Present: gait normal - Psychiatric Psychiatric: Present: A&O x's 3, appropriate affect, intact judgment & insight - Additional findings Additional findings: Breast Exam: BRA: 38D Inspection: Bilateral grade 2/3 ptosis Palpation: Right breast: Multi-positional exam fibrocystic changes no dominant masses or nodules of concern, post op changes Right axilla: No adenopathy of concern Left breast: Well-healed scar from prior surgery, Multi-positional exam no dominant masses or nodules of concern Left axilla: No adenopathy of concern Assessment and Plan Assessment: Impression: stage I invasive ductal left breast cancer/ doing well diagnosed May 2022 due for bilateral mammogram in April 2023/done BIRAD 2 personally reviewed completed radiation therapy presently on annestrazole Plan: bilateral mammogram April 2024 with appointment at that time follow medical oncology follow radiation oncology follow up here in 6 months CC: Rama GILLESPIE, Dr. Yi, Dr. Milton Anthony
[2023-05-20 15:34] VITALS: BP 135/92; PULSE 101; RESP 17; TEMP 98.1
== END ==
LOC: WWCWWP 14:40
PROVIDERS: ATTEND Surgery
DX: C50.912 Malignant neoplasm of unspecified site of left female breast (principal); Z17.0 Estrogen receptor positive status [ER+]; Z87.891 Personal history of nicotine dependence; Z92.3 Personal history of irradiation; Z88.5 Allergy status to narcotic agent; Z91.048 Other nonmedicinal substance allergy status; Z91.040 Latex allergy status; Z91.018 Allergy to other foods; Z98.890 Other specified postprocedural states

== ENCOUNTER → 2023-11-18 | Outpatient (CLI) | payer BC ==
[2023-11-18 09:47] VITALS: BP 130/87; PULSE 94; RESP 16; TEMP 98.2
--- NOTE | 2023-11-18 10:04 | P.PN ---
Subjective Progress Note Date: 11/18/23 Principal diagnosis: invasive ductal cancer left breast 05/20/23 12/08/22 Invasive ductal carcinoma left breast Cristina is a 57-year-old white female seen in consultation for Dr. El regarding a left breast invasive ductal carcinoma. She underwent a bilateral screening mammogram on . This revealed a new 9-10 mm spiculated irregular mass in the left breast approximately 6 cm from the nipple. An ultrasound was then recommended. Nothing of concern was seen in the right breast and ultrasound revealed an 8 x 5 mm lesion at the 11:30 to 12 o'clock position. Core biopsy was performed on . Pathology results revealed an invasive ductal carcinoma ER/NE positive HER-2/mina negative grade 2. The patient does not feel any new lumps masses or nodules of concern. This was a routine screening mammogram. Her last mammogram prior to this was 4 years ago. She is not complaining of any nipple discharge or skin changes. She has not had any recent trauma or infection in the breast. The patients case was presented at tumor board on 06-22-22. The consensus was for a lumpectomy and sentinel node biopsy. She will have radiation therapy to follow. She will have hormone therapy following the radiation therapy. I have called the patient and discussed this with her. She is in agreement. She will have an Oncotype done on the lumpectomy specimen. Surgery is scheduled for July 29. 12-08-22 Is not complaining of any new lumps masses or nodules of concern in either breast, does complain of a suture that is protruding from the periareolar area in the medial aspect of the left breast 07-27-22 lumpectomy and SNB; Grade 2 invasive ductal cancer 8 mm all margins (-); sentinal node (-) patient completed radiation therapy note radiation therapy 11-18-22 reviewed [facility] medical oncology 11-18-22 reviewed started on ananstrazole/ grade 1 hot flashes 05-20-23 07-27-22 lumpectomy and SNB; Grade 2 invasive ductal cancer 8 mm all margins (-); sentinal node (-) oncptype score: 20, no chemotherapy patient completed radiation therapy note radiation therapy 11-18-22 reviewed [facility] onc[facility] 11-18-22 reviewed started on ananstrazole/ grade 1 hot flashes bilateral mammogram on 05-16-23 BIRAD 2 personally reviewed note 03-15-23 reviewed medical oncology She was admitted in February with chest pain, but was told it was her gallbladder she is having this evaluated 11-18-23 Cristina is a 58 year old female being followed for left breast invasive ductal cancer surveillance. 07-27-22 lumpectomy and SNB; Grade 2 invasive ductal cancer 8 mm all margins (-); sentinal node (-) oncptype score: 20, no chemotherapy patient completed radiation therapy 10-15-22 [id number] cGy noted [facility] onc[facility] 11-18-22 reviewed started on ananstrazole/ grade 1 hot flashes bilateral mammogram on 05-16-23 BIRAD 2 invasive ductal cancer left breast 2022 stage I note radiation oncology 05-24-23 reviewed She is not complaining of any new lumps masses or nodules of concern in either breast Caffeine: 5-8 cups/day in the past nicotine: stopped 13 years ago used to smoke 1 PPD for 20 years chocolate: weekly BCP: stopped 30 years ago, used for about 5 years Family History: cousin maternal: breast cancer 2 maternal cousins: uterine cancer maternal cousin: brain cancer maternal grandmother: esophageal cancer sister: colon cancer Hormonal History: menarche: 15 A1, breast fed: no, age at first : 22 menopasue: 54 hormones: none Surgical history: laporatomy for a growth on ovary at 34, no cancer vein stripping colonoscopies Medical History: High cholesterol Social History: nicotine: as above alcohol: occasional drugs: Smokes marijuana daily, for 40 years, to keep calm - Constitutional Constitutional: Reports sweats - EENT Eyes: denies blurred vision, denies pain Ears: deny: decreased hearing, tinnitus Ears, nose, mouth and throat: Reports headache, Denies sore throat - Breasts Breasts: bilateral: as per HPI - Cardiovascular Cardiovascular: Denies chest pain, Denies shortness of breath - Respiratory Respiratory: Denies cough - Gastrointestinal Gastrointestinal: Denies abdominal pain, Denies diarrhea, Denies nausea, Denies vomiting - Genitourinary (Female) Genitourinary: Denies dysuria, Denies hematuria - Menstruation Menstruation: Reports postmenopausal - Musculoskeletal Musculoskeletal: Denies myalgias - Integumentary Integumentary: Denies pruritus, Denies rash - Neurological Neurological: Denies numbness, Denies weakness - Psychiatric Psychiatric: Reports anxiety - Endocrine Endocrine: Reports fatigue, Denies weight change - Hematologic/Lymphatic Comment: none - Allergic/Immunologic Allergic/Immunologic: Reports seasonal allergies Past Medical History Past Medical History: GERD/Reflux, Hyperlipidemia, Thyroid Disorder Additional Past Medical History / Comment(s): dx yrs ago with IBS no longer an issue since eliminting gluten. FATTY LIVER, gestational diabetes, hx hypothyroidism-no current rx History of Any Multi-Drug Resistant Organisms: None Reported Additional Past Surgical History / Comment(s): LAPAROTOMY AND LAPAROSCOPY, RT VARICOSE VEIN STRIPPING, colonocopy Past Anesthesia/Blood Transfusion Reactions: No Reported Reaction Past Psychological History: No Psychological Hx Reported Smoking Status: Former smoker Past Alcohol Use History: Rare Additional Past Alcohol Use History / Comment(s): QUIT SMOKING 2007, was 1 PPD Past Drug Use History: Marijuana Additional Drug Use History / Comment(s): CBD oil. - Past Family History Mother Family Medical History: No Reported History Medications and Allergies Home Medications Medication Instructions Recorded Confirmed Type Cholesterol Pill(Name Unknown) 1 tab PO HS 10/07/20 06/18/22 History Loratadine-Pseudoeph 5-120 mg 1 tab PO QAM 10/07/20 06/18/22 History [Claritin-D 12 Hour] Cyclobenzaprine [Flexeril] 5 mg PO TID 05/19/22 06/18/22 History Allergies Allergy/AdvReac Type Severity Reaction Status Date / Time propoxyphene Allergy "goes into Verified 06/18/22 10:36 [From Darvocet-N] a rage" Objective - Vital Signs Vital signs: Vital Signs Temp 98.2 F 11/18/23 09:45 Pulse 94 11/18/23 09:45 Resp 16 11/18/23 09:45 BP 130/87 11/18/23 09:45 Pulse Ox 97 11/18/23 09:45 FiO2 Intake & Output 11/17/23 11/18/23 11/18/23 18:59 06:59 18:59 Weight 90.718 kg - Constitutional General appearance: Present: cooperative - EENT Eyes: Present: EOMI ENT: Present: hearing grossly normal - Neck Neck: Present: normal ROM - Respiratory Respiratory: bilateral: CTA - Cardiovascular Rhythm: regular Heart sounds: normal: S1, S2 - Integumentary Integumentary: Present: normal turgor - Musculoskeletal Musculoskeletal: Present: gait normal - Psychiatric Psychiatric: Present: A&O x's 3, appropriate affect, intact judgment & insight - Additional findings Additional findings: Breast Exam: BRA: 38D Inspection: Bilateral grade 2/3 ptosis Palpation: Right breast: Multi-positional exam fibrocystic changes no dominant masses or nodules of concern, post op changes Right axilla: No adenopathy of concern Left breast: Well-healed scar from prior surgery, Multi-positional exam no dominant masses or nodules of concern Left axilla: No adenopathy of concern Assessment and Plan Assessment: Impression: stage I invasive ductal left breast cancer/ doing well diagnosed May 2022 due for bilateral mammogram in April 2023/done BIRAD 2 personally reviewed completed radiation therapy presently on annestrazole Plan: bilateral mammogram April 2024 with appointment at that time follow medical oncology follow radiation oncology follow up here in April 2024 CC: Rama GILLESPIE, Dr. iY, Dr. Milton Anthony
== END ==
LOC: WWCWWP 09:31
PROVIDERS: ATTEND Surgery
DX: Z85.3 Personal history of malignant neoplasm of breast

== ENCOUNTER → 2023-12-06 | Outpatient (CLI) | payer BC ==
[2023-12-06 15:45] VITALS: BP 119/85; PULSE 108; RESP 16; TEMP 98.3
--- NOTE | 2023-12-06 16:15 | P.HPOB ---
History of Present Illness H&P Date: 12/06/23 Chief Complaint: The patient is here for her routine gynecologic exam. This is a 58-year-old G1, P1 with an LMP of 2019. Patient is without gynecologic complaints and denies any postmenopausal bleeding. She has been on anastrozole for her breast cancer history. She thinks it may be causing joint problems. Review of Systems The patient has lost 3 pounds over the last year. She denies respiratory, cardiac, or G.I. problems. Musculoskeletal: She has been having joint problems including problems with her ankles and wrists. She thinks it might be related to her anastrozole that she takes for her breast cancer history. Past Medical History Past Medical History: Cancer, GERD/Reflux, Hyperlipidemia, Thyroid Disorder Additional Past Medical History / Comment(s): FATTY LIVER, gestational diabetes, hx hypothyroidism-no current rx. LT BREAST CANCER-05/2022(lumpectomy and radiation therapy). 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 History of Any Multi-Drug Resistant Organisms: None Reported Past Surgical History: Breast Surgery Additional Past Surgical History / Comment(s): LAPAROTOMY AND LAPAROSCOPY, RT VARICOSE VEIN STRIPPING, [id number](next after 5yr), LT BREAST CORE BX + CANCER. Left breast lumpectomy 2022. Past Anesthesia/Blood Transfusion Reactions: No Reported Reaction Past Psychological History: Anxiety Additional Psychological History / Comment(s): ANXIETY R/T CURRENT MEDICAL DX Smoking Status: Former smoker Past Alcohol Use History: Rare Additional Past Alcohol Use History / Comment(s): QUIT SMOKING 2011, was 1 PPD Past Drug Use History: Marijuana Additional Drug Use History / Comment(s): CBD oil. -INSTRUCTED TO REFRAIN FROM USE FOR AT LEAST 24 HOURS PRIOR TO PROCEDURE - Past Family History Mother Family Medical History: Diabetes Mellitus Additional Family Medical History / Comment(s): Maternal first cousin had breast cancer. Father Family Medical History: Myocardial Infarction (OR) Additional Family Medical History / Comment(s): from OR at age 36. Medications and Allergies Home Medications Medication Instructions Recorded Confirmed Type Anastrozole 1 mg PO DAILY 11/16/22 12/06/23 History Cider Vinegar [Apple Cider Vinegar] 300 mg PO DAILY 11/16/22 12/06/23 History [place]-3 Fatty Acids/Fish Oil 1 cap PO DAILY 11/16/22 12/06/23 History [[place]-3 Fish Oil 1,200 mg Sfgl] Cholecalciferol [Vitamin D3 (25 50 mcg PO MOWEFR 02/18/23 12/06/23 History Mcg = 1000 Iu)] Rosuvastatin Calcium [Crestor] 5 mg PO DAILY 12/06/23 12/06/23 History Allergies Allergy/AdvReac Type Severity Reaction Status Date / Time adhesive Allergy Rash/Hives Verified 12/06/23 15:41 latex Allergy Rash/Hives Verified 12/06/23 15:41 gluten AdvReac Nausea & Verified 12/06/23 15:41 Vomiting & Diarrhea propoxyphene AdvReac "goes into Verified 12/06/23 15:41 [From Darvocet-N] a rage" Exam Vital Signs Temp Pulse Resp BP Pulse Ox 12/06/23 15:43 98.3 F 108 H 16 119/85 97 Intake and Output 12/06/23 12/06/23 12/06/23 06:59 14:59 22:59 Other: Weight 92.533 kg Height 5 feet 6 inches, weight 204 pounds, BMI 32.9. This is a well-developed well-nourished white female who is alert and oriented times 3 in no acute distress. HEENT: Within normal limits. NECK: Supple without mass or thyromegaly. CHEST AND LUNGS: Clear to auscultation. HEART: Regular rate and rhythm. BREASTS: Are without mass or discharge. Left breast is consistent with previous lumpectomy. AXILLARY EXAM: Negative for adenopathy. BACK: Negative for CVA tenderness. ABDOMEN: Soft, nontender, without palpable masses. PELVIC EXAM: Normal external genitalia with mild atrophy. Cervix and vagina appear normal with mild atrophy. There is no unusual discharge. There is no evidence of prolapse. The uterus is midposition, nongravid size and nontender. There are no palpable adnexal masses or tenderness. RECTAL EXAM: Rectovaginal exam is negative for mass or tenderness and is negative for occult blood. EXTREMITIES: Nontender. IMPRESSION: 1. 58-year-old menopausal female with normal gynecologic exam. 2. History of left breast cancer in 2022 status post lumpectomy and radiation therapy. She continues to take anastrozole for this. PLAN: 1. Pap smear was deferred since she had a negative Pap smear cotest on 11/16/2022. 2. Self breast awareness was discussed with the patient. We have also discussed symptoms associated with inflammatory breast cancer. 3. The patient states her bilateral mammogram will be due in April of next year. She does this through Dr. Jas Winter. 4. Osteoporosis prevention was discussed. I have stressed the importance of adequate calcium, vitamin D and regular exercise. Recommended amounts of calcium and vitamin D were also discussed. She states she plans on repeating the bone density test next year as recommended by her oncologist who prescribes her anastrozole. 5. She was advised to return in one to 1 1/2 years for her annual well woman exam.
== END ==
LOC: WWCWWP 15:21
PROVIDERS: ATTEND Obstetrics & Gynecology

== ENCOUNTER → 2024-04-16 | Outpatient (CLI) | payer BC ==
--- NOTE | 2024-04-16 13:08 | MM ---
Reason for Exam: Hx of breast cancer, conservation therapy. Last screening mammogram was performed 11 month(s) ago. Patient History: Menarche at age 15. First Full-Term at age 22. Postmenopausal. Breast cancer, left, age 57. Breast cancer, left, age 57. Patient used Hormonal Contraceptives for 2 years. 07/27/2022, Lumpectomy on the Left side. 07/27/2022, Malignant US breast localization LT on the left side. 06/02/2022, Malignant US biopsy breast VAD LT on the left side. Prior Study Comparison: 05/13/2022 Bilateral MG screening mammo w CAD, [facility]. 05/18/2022 Left US breast workup limited LT, [facility]. 06/02/2022 Left MG diagnostic mammo LT wo CAD., [facility]. 07/27/2022 Left MG diagnostic mammo LT wo CAD., [facility]. 05/16/2023 Bilateral MG 3D diag mammo w/cad [facility], [facility]. Tissue Density: There are scattered areas of fibroglandular density. Findings: Analyzed By CAD. Postsurgical and posttreatment change redemonstrated on the left. Subareolar density left cc view is unchanged. Asymmetric density lateral left CC view anterior depth shows no persisting abnormality on 3-D images. Benign oil cyst calcification laterally upper outer quadrant on the left. No significant change. Ongoing short interval follow-up to assess for any evolving posttreatment change recommended. Overall Assessment: Probably benign, BI-RAD 3 Management: Diagnostic Mammogram of the left breast in 6 months. Given breast cancer treatment within the last 3 years in order to assess for any evolving posttreatment change. Results were given to the patient verbally at the time of exam. Patient should continue monthly self-breast exams. A clinical breast exam by your physician is recommended on an annual basis. This exam should not preclude additional follow-up of suspicious palpable abnormalities. [facility], , 04/16/2024 1:05 PM. Electronically signed and approved by: Lisa Diaz M.D. Radiologist
== END | disposition home or self-care (01) ==
LOC: RADMAMWWP 12:40
PROVIDERS: ATTEND Surgery
DX: R92.323 Mammographic fibroglandular density, bilateral breasts (principal); Z85.3 Personal history of malignant neoplasm of breast; Z78.0 Asymptomatic menopausal state; Z92.0 Personal history of contraception
CPT/HCPCS: 77062; 77066

== ENCOUNTER → 2024-04-20 | Outpatient (CLI) | payer BC ==
[2024-04-20 09:06] VITALS: BP 147/91; PULSE 101; RESP 16; TEMP 98.3
--- NOTE | 2024-04-20 09:32 | P.PN ---
Subjective Progress Note Date: 04/20/24 invasive ductal cancer left breast 12/08/22 Invasive ductal carcinoma left breast Cristina is a 57-year-old white female seen in consultation for Dr. El regarding a left breast invasive ductal carcinoma. She underwent a bilateral screening mammogram on . This revealed a new 9-10 mm spiculated irregular mass in the left breast approximately 6 cm from the nipple. An ultrasound was then recommended. Nothing of concern was seen in the right breast and ultrasound revealed an 8 x 5 mm lesion at the 11:30 to 12 o'clock position. Core biopsy was performed on . Pathology results revealed an invasive ductal carcinoma ER/IN positive HER-2/mina negative grade 2. The patient does not feel any new lumps masses or nodules of concern. This was a routine screening mammogram. Her last mammogram prior to this was 4 years ago. She is not complaining of any nipple discharge or skin changes. She has not had any recent trauma or infection in the breast. The patients case was presented at tumor board on 06-22-22. The consensus was for a lumpectomy and sentinel node biopsy. She will have radiation therapy to follow. She will have hormone therapy following the radiation therapy. I have called the patient and discussed this with her. She is in agreement. She will have an Oncotype done on the lumpectomy specimen. Surgery is scheduled for July 29. 12-08-22 Is not complaining of any new lumps masses or nodules of concern in either breast, does complain of a suture that is protruding from the periareolar area in the medial aspect of the left breast 07-27-22 lumpectomy and SNB; Grade 2 invasive ductal cancer 8 mm all margins (-); sentinal node (-) patient completed radiation therapy note radiation therapy 11-18-22 reviewed [facility] onc[facility] 11-18-22 reviewed started on ananstrazole/ grade 1 hot flashes 05-20-23 07-27-22 lumpectomy and SNB; Grade 2 invasive ductal cancer 8 mm all margins (-); sentinal node (-) oncptype score: 20, no chemotherapy patient completed radiation therapy note radiation therapy 11-18-22 reviewed [facility] onc[facility] 11-18-22 reviewed started on ananstrazole/ grade 1 hot flashes bilateral mammogram on 05-16-23 BIRAD 2 personally reviewed note 03-15-23 reviewed medical oncology She was admitted in February with chest pain, but was told it was her gallbladder she is having this evaluated 11-18-23 Cristina is a 58 year old female being followed for left breast invasive ductal cancer surveillance. 07-27-22 lumpectomy and SNB; Grade 2 invasive ductal cancer 8 mm all margins (-); sentinal node (-) oncptype score: 20, no chemotherapy patient completed radiation therapy 10-15-22 [id number] cGy noted medical oncology 11-18-22 reviewed started on ananstrazole/ grade 1 hot flashes bilateral mammogram on 05-16-23 BIRAD 2 invasive ductal cancer left breast 2022 stage I note radiation oncology 05-24-23 reviewed She is not complaining of any new lumps masses or nodules of concern in either breast 04-20-24 Cristina is a 59 year old female being followed for left breast invasive ductal cancer surveillance. 07-27-22 lumpectomy and SNB; Grade 2 invasive ductal cancer 8 mm all margins (-); sentinal node (-) oncptype score: 20, no chemotherapy patient completed radiation therapy 10-15-22 [id number] cGy noted medical oncology 01-17-24 reviewed started on ananstrazole/ grade 1 hot flashes and developed arthralgies and has declined endocrine therapy, she is interested in pursuing dietary changes that may help bilateral mammogram on 05-17-24 BIRAD 3; repeat left breast mammogram in 6 months personally reviewed invasive ductal cancer left breast 2022 stage I She is not complaining of any new lumps masses or nodules of concern in either breast Caffeine: 5-8 cups/day in the past nicotine: stopped 13 years ago used to smoke 1 PPD for 20 years chocolate: weekly BCP: stopped 30 years ago, used for about 5 years Family History: cousin maternal: breast cancer 2 maternal cousins: uterine cancer maternal cousin: brain cancer maternal grandmother: esophageal cancer sister: colon cancer Hormonal History: menarche: 15 A1, breast fed: no, age at first : 22 menopasue: 54 hormones: none Surgical history: laporatomy for a growth on ovary at 34, no cancer vein stripping colonoscopies Medical History: High cholesterol Social History: nicotine: as above alcohol: occasional drugs: Smokes marijuana daily, for 40 years, to keep calm - Constitutional Constitutional: Reports sweats - EENT Eyes: denies blurred vision, denies pain Ears: deny: decreased hearing, tinnitus Ears, nose, mouth and throat: Reports headache, Denies sore throat - Breasts Breasts: bilateral: as per HPI - Cardiovascular Cardiovascular: Denies chest pain, Denies shortness of breath - Respiratory Respiratory: Denies cough - Gastrointestinal Gastrointestinal: Denies abdominal pain, Denies diarrhea, Denies nausea, Denies vomiting - Genitourinary (Female) Genitourinary: Denies dysuria, Denies hematuria - Menstruation Menstruation: Reports postmenopausal - Musculoskeletal Musculoskeletal: Denies myalgias - Integumentary Integumentary: Denies pruritus, Denies rash - Neurological Neurological: Denies numbness, Denies weakness - Psychiatric Psychiatric: Reports anxiety - Endocrine Endocrine: Reports fatigue, Denies weight change - Hematologic/Lymphatic Comment: none - Allergic/Immunologic Allergic/Immunologic: Reports seasonal allergies Past Medical History Past Medical History: GERD/Reflux, Hyperlipidemia, Thyroid Disorder Additional Past Medical History / Comment(s): dx yrs ago with IBS no longer an issue since eliminting gluten. FATTY LIVER, gestational diabetes, hx hypothyroidism-no current rx History of Any Multi-Drug Resistant Organisms: None Reported Additional Past Surgical History / Comment(s): LAPAROTOMY AND LAPAROSCOPY, RT VARICOSE VEIN STRIPPING, colonocopy Past Anesthesia/Blood Transfusion Reactions: No Reported Reaction Past Psychological History: No Psychological Hx Reported Smoking Status: Former smoker Past Alcohol Use History: Rare Additional Past Alcohol Use History / Comment(s): QUIT SMOKING 2007, was 1 PPD Past Drug Use History: Marijuana Additional Drug Use History / Comment(s): CBD oil. - Past Family History Mother Family Medical History: No Reported History Medications and Allergies Home Medications Medication Instructions Recorded Confirmed Type Cholesterol Pill(Name Unknown) 1 tab PO HS 10/07/20 06/18/22 History Loratadine-Pseudoeph 5-120 mg 1 tab PO QAM 10/07/20 06/18/22 History [Claritin-D 12 Hour] Cyclobenzaprine [Flexeril] 5 mg PO TID 05/19/22 06/18/22 History Allergies Allergy/AdvReac Type Severity Reaction Status Date / Time propoxyphene Allergy "goes into Verified 06/18/22 10:36 [From Darvocet-N] a rage" Objective - Vital Signs Vital signs: Vital Signs Temp 98.3 F 04/20/24 09:04 Pulse 101 H 04/20/24 09:04 Resp 16 04/20/24 09:04 BP 147/91 04/20/24 09:04 Pulse Ox 98 04/20/24 09:04 FiO2 Intake & Output 04/19/24 04/20/24 04/20/24 18:59 06:59 18:59 Weight 90.718 kg - Constitutional General appearance: Present: cooperative - EENT Eyes: Present: EOMI ENT: Present: hearing grossly normal - Neck Neck: Present: normal ROM - Respiratory Respiratory: bilateral: CTA - Cardiovascular Rhythm: regular Heart sounds: normal: S1, S2 - Integumentary Integumentary: Present: normal turgor - Musculoskeletal Musculoskeletal: Present: gait normal - Psychiatric Psychiatric: Present: A&O x's 3, appropriate affect, intact judgment & insight - Additional findings Additional findings: Breast Exam: BRA: 38D Inspection: Bilateral grade 2/3 ptosis; fungal infection under the right breast Palpation: Right breast: Multi-positional exam fibrocystic changes no dominant masses or nodules of concern, post op changes Right axilla: No adenopathy of concern Left breast: Well-healed scar from prior surgery, Multi-positional exam no dominant masses or nodules of concern Left axilla: No adenopathy of concern Assessment and Plan Assessment: Impression: stage I invasive ductal left breast cancer/ doing well diagnosed May 2022 due for bilateral mammogram in April 2025/personally reviewed; left breast mammogram in 6 months completed radiation therapy stopped endocrine therapy Plan: bilateral mammogram April 2025 with appointment at that time left breast mammogram 6 months with appointment at that time follow medical oncology follow radiation oncology follow up here in 6 months nystatin under right breast CC: Rama GILLESPIE, Dr. Yi, Dr. Milton Anthony
== END ==
LOC: WWCWWP 08:48
PROVIDERS: ATTEND Surgery
DX: Z85.3 Personal history of malignant neoplasm of breast (principal); N63.20 Unspecified lump in the left breast, unspecified quadrant; R23.2 Flushing; K21.9 Gastro-esophageal reflux disease without esophagitis; E11.9 Type 2 diabetes mellitus without complications; E03.9 Hypothyroidism, unspecified; Z87.891 Personal history of nicotine dependence; K58.9 Irritable bowel syndrome, unspecified; Z91.048 Other nonmedicinal substance allergy status; Z91.040 Latex allergy status; Z91.018 Allergy to other foods; Z88.8 Allergy status to other drugs, medicaments and biological substances

== ENCOUNTER → 2024-05-14 | Outpatient (CLI) | payer BC ==
--- NOTE | 2024-05-14 11:03 | BD ---
EXAMINATION TYPE: Axial Bone Density DATE OF EXAM: 05/14/2024 CLINICAL HISTORY: 59 years old Female. ICD-10 CODE: M81.0 AGE-RELATED OSTEOPOROSIS W/O CURRENT PATHO LO , Additional History: Height: 65.25 Weight: 203 FRAX RISK QUESTIONS: Secondary Osteoporosis: RISK FACTORS HISTORY OF: MEDICATIONS: EXAM MEASUREMENTS: Bone mineral densitometry was performed using the [employer] [facility]. Bone mineral density as measured about the Lumbar spine is: ----- L1-L4(G/cm2): 0.963 T Score Values are as follows: ----- L1: -1.7 ----- L2: -1.3 ----- L3: -1.4 ----- L4: -2.7 ----- L1-L4: -1.8 Z Score Values are as follows: ----- L1: -1.6 ----- L2: -1.2 ----- L3: -1.3 ----- L4: -2.7 ----- L1-L4: -1.7 Bone mineral density has: Decreased -8.5% since study of: 05-13-22 Bone mineral density about the R hip (g/cm2): 0.962 Bone mineral density about the L hip (g/cm2): 0.954 T Score values are as follows: -----R Neck: -1.3 -----L Neck: -1.5 -----R Total: -0.4 -----L Total: -0.4 Z Score values are as follows: -----R Neck: -0.8 -----L Neck: -1.0 -----R Total: -0.2 -----L Total: -0.3 Bone mineral density has: Decreased -2.8% since study of: 05-13-22 FRAX%s: The graph provided illustrates a 6.8% chance for a major osteoporotic fx and a 0.5% chance fo r the hips probability for fx in 10 years time. IMPRESSION: Osteopenia (T Score between -2.5 and -1). There is slightly increased risk of fracture and the patient may be considered for treatment. Re-Screen 2-5 years. NOTE: T-SCORE=SD OF THE YOUNG ADULT MEAN. [facility], , 05/14/2024 11:01 AM
== END | disposition home or self-care (01) ==
LOC: RADBDWWP 09:57
PROVIDERS: ATTEND Internal Medicine
DX: M81.0 Age-related osteoporosis without current pathological fracture (principal); M85.89 Other specified disorders of bone density and structure, multiple sites; E78.5 Hyperlipidemia, unspecified; C50.412 Malignant neoplasm of upper-outer quadrant of left female breast; Z71.3 Dietary counseling and surveillance
CPT/HCPCS: 77080